=== PATIENT | male | born 1940 | race Caucasian/White ===

== ENCOUNTER → 2020-08-31 07:47 | Outpatient (CLI) | payer MEDICARE, OTHER, SELFPAY ==
--- NOTE | ~2020-08-31 | US_ITS ---
EXAMINATION: US aorta [facility] DATE: 08/31/2020 08:19 INDICATION: Abdominal aortic aneurysm screening, hypercholesterolemia, prior smoker TECHNIQUE: Grayscale, color Doppler, and pulsed Doppler images of the aorta and common iliac arteries were obtained. COMPARISON: None. FINDINGS: Maximum vascular dimensions are as follows: Proximal aorta: 2.9 cm Mid aorta: 2.3 cm Distal aorta: 2.3 cm Right common iliac artery: 1.1 cm Left common iliac artery: 1.2 cm There is no evidence of abdominal aortic aneurysm. IMPRESSION: 1. No sonographic evidence of abdominal aortic aneurysm. Reviewed, dictated and finalized at location A. 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
== END ==
PROVIDERS: PCP Family Medicine; Visit Provider Family Medicine
DX: Z13.6 Encounter for screening for cardiovascular disorders (principal)
CPT/HCPCS: 76706

== ENCOUNTER → 2021-05-03 14:36 | Outpatient (CLI) | payer MEDICARE, OTHER, SELFPAY ==
--- NOTE | ~2021-05-03 | MR_ITS ---
EXAMINATION: MR lumbar spine [facility] EXAM DATE: 05/03/2021 15:23 INDICATION: Lumbar radiculopathy. TECHNIQUE: Multi-sequential, multiplanar MR images of the lumbar spine were obtained without contrast . Sagittal T1, T2, T2 fat saturation images. Axial T2 weighted images. Comparison is made to prior examination from 08/28/2014. FINDINGS: There is partially fused L4-5 disc space. Moderate to severe loss of the L5-S1 disc height, mild to moderate loss of the upper lumbar levels. Mild to moderate central compression fracture supe rior endplate of L1, chronic but this is new compared to 2015. Mild diffuse loss of vertebral body he ights. There are no suspicious marrow signal abnormalities. Paraspinal soft tissue is unremarkable. Level by level evaluation: T12-L1: Disc does not extend beyond the endplate margin. Facet arthropathy: Mild. Neural foraminal stenosis: No stenosis. Central canal stenosis: No stenosis. L1-L2: There is a mild diffuse disc bulge. Facet arthropathy: Mild to moderate. Neural foraminal stenosis: Mild to moderate bilateral. Central canal stenosis: Minimal. L2-L3: There is a mild to moderate diffuse disc bulge. Facet arthropathy: Moderate . Ligamentum flavum enlargement. Neural foraminal stenosis: Moderate left, mild to moderate right. Central canal stenosis: Mild to moderate. L3-L4: There is a moderate diffuse disc bulge. Facet arthropathy: Severe . Ligamentum flavum enlargement. Neural foraminal stenosis: Moderate bilateral. Central canal stenosis: Severe. L4-L5: Partially fused Facet arthropathy: Partially fused. Neural foraminal stenosis: Moderate right, mild to moderate left. Central canal stenosis: Mild to moderate. L5-S1: There is a moderate diffuse disc bulge. Facet arthropathy: Mild to moderate. Neural foraminal stenosis: Moderate right, mild to moderate left. Central canal stenosis: Mild to moderate. Compared to 2014 there is been interval progression in the spondylosis, significant interval progress ion in the L3-4 Central canal stenosis. IMPRESSION: 1. L3-4 severe central canal stenosis. 2. Mild to moderate chronic L1 compression fracture. 3. Spondylosis as detailed above. Reviewed, dictated and finalized at location B.
== END ==
PROVIDERS: PCP Family Medicine
DX: M54.16 Radiculopathy, lumbar region (principal); M48.02 Spinal stenosis, cervical region; M48.56XA Collapsed vertebra, not elsewhere classified, lumbar region, initial encounter for fracture; M47.816 Spondylosis without myelopathy or radiculopathy, lumbar region
CPT/HCPCS: 72148

== ENCOUNTER → 2021-06-01 11:39 | Outpatient (CLI) | payer MEDICARE, OTHER, SELFPAY ==
--- NOTE | ~2021-06-01 | XR_ITS ---
XR lumbar spine min 4V DATE: 06/01/2021 12:32 INDICATION: Lumbar radiculopathy TECHNIQUE: AP, lateral, coned lateral lumbosacral standing views and flexion and extension standing l ateral views COMPARISON: 05/03/2021 MRI lumbar spine FINDINGS: There is diffuse osteopenia. There is mild to moderate anterior wedge compression fracture deformity of L1, present on 05/03/2021. There is moderate degenerative disc disease at L1-2, L2-3, L3-4. There is fusion at L4-5. There is moderately severe degenerative disc disease at L5-S1. The included lower thoracic and lumbar pedicles are intact. The sacroiliac joints appear normal. Surgical clips, right upper quadrant, consistent with cholecystectomy. Prominent amount of fecal material within the colon. IMPRESSION: Mild to moderate anterior wedge compression fracture of L1 Fusion at L4-5 Diffuse osteopenia Multilevel degenerative disc disease Reviewed, dictated and finalized at location B.
== END ==
PROVIDERS: PCP Family Medicine
DX: M54.16 Radiculopathy, lumbar region (principal); Z98.1 Arthrodesis status; M48.56XA Collapsed vertebra, not elsewhere classified, lumbar region, initial encounter for fracture; M47.817 Spondylosis without myelopathy or radiculopathy, lumbosacral region
CPT/HCPCS: 72110

== ENCOUNTER 2021-10-10 12:59 | Emergency (ER) | payer MEDICARE, OTHER, SELFPAY ==
--- NOTE | ~2021-10-10 | XR_ITS ---
XR hand LT 2V 10/10/2021 13:27 Indication: Second digit amputation Procedure: 2 views left hand Comparison: No prior studies for comparison. Findings: There is partial amputation of the left second distal phalanx. No foreign body identified. There is residual fracture of the distal phalanx. There is polyarticular osteoarthritis. Impression: 1: Partial amputation of the left second distal phalanx. Reviewed, dictated and finalized at location A. 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
[2021-10-10 13:04] VITALS: BP 161/92; PULSE 69; RESP 18; TEMP 36.8; O2SAT 100
[2021-10-10] MEDS: ONDANSETRON INJ 4 MG/2 ML VIAL IV PUSH (13:13)
[2021-10-10] MEDS: MORPHINE SULFATE (*CRX) 4 MG/ML INJ IV PUSH (13:13)
--- NOTE | 2021-10-10 13:28 | ED.WOUNDLAC ---
HPI - Wound/Laceration General Chief Complaint: Wound/Laceration Stated Complaint: laceration Time Seen by Provider: 10/10/21 13:04 Source: patient History of Present Illness HPI narrative: Patient presents with a finger amputation. Patient reports he was using his table sawcoronary from and he cut his pointer finger on his left hand. He put the severed piece in a cup with ice and came to the ER for evaluation. Reports pain to his finger is sharp, constant, worse with manipulation of the area. Denies any other injuries denies use of any blood thinners. He does not member when his last tetanus shot was and he is right-hand dominant Related Data Allergies Allergy/AdvReac Type Severity Reaction Status Date / Time No Known Allergies Allergy Verified 09/06/21 13:48 Review of Systems Review of Systems: CONSTITUTIONAL: Denies fever, chills, or sweats. EYES: Denies visual changes, redness, or discharge. ENT: Denies rhinorrhea, congestion, sore throat, or otalgia. CARDIOVASCULAR: Denies chest pain, palpitations, or edema. RESPIRATORY: Denies cough or dyspnea. GASTROINTESTINAL: Denies abdominal pain, nausea, vomiting, or diarrhea. GENITOURINARY: Denies dysuria or hematuria. SKIN: Denies rash or itching. MUSCULOSKELETAL: Denies back pain, joint pain, or myalgia. NEUROLOGIC: Denies headache, numbness, dizziness, or weakness. PSYCHIATRIC: Denies anxiety or depression. All systems reviewed & are unremarkable except as noted in HPI and below PMFSH Past Medical History Medical History Age-related nuclear cataract of both eyes CAD (coronary artery disease) Old [place] (myocardial infarction) Primary open angle glaucoma (POAG) of both eyes, mild stage Surgical History Surgical History History of lumbar surgery L3-4 decompression, laminectomy Family History Family History Other Family history of arthritis Family history of chronic obstructive pulmonary disease Family history of malignant neoplasm Hypertension Social History Social History Smoking packs per day: 1 Smoking cigarettes per day: 20.0 Years smoked: 10 Smoking pack-years: 10.00 Smoking status: Former smoker Tobacco type: cigarettes Second hand tobacco smoke exposure: No Smoking end date: 08/21/79 Alcohol intake: never Substance use: never Substance use type: does not use Gender identity (if verbalized by the patient): Male Sexual Orientation (if Verbalized by the Patient): Straight or Heterosexual Exam Narrative: GENERAL: Well-appearing, well-nourished, and in no acute distress. HEAD: Normocephalic, atraumatic. EYES: PERRLA and EOMI. ENT: Nares clear, no rhinorrhea or epistaxis. Mucous membranes moist. NECK: Supple. No masses. No JVD EXTREMITIES: Amputation of the second digit left hand just proximal to the DIP joint wound is tender to palpation sensation remains intact to light touch around the wound site. SKIN: Warm, dry, no rash. NEURO: No focal deficits. Alert and oriented x3. PSYCH: Normal mood and affect. Course Reevaluation(s) Reevaluation #1: Dr. Negron at bedside performing repair Date: 10/10/21 Time: 15:51 Reevaluation #2: Patient resting comfortably sutures have been completed patient is to follow-up with his outpatient. Patient comfortable outpatient plan. Date: 10/10/21 Time: 16:46 Consultations Consultation #1: Case discussed with Dr. Negron who will come to the ER and evaluate the patient Date: 10/10/21 Time: 13:34 Vital Signs Vital signs: Vital Signs Temperature 36.8 C 10/10/21 13:04 Pulse Rate 69 10/10/21 13:04 Respiratory Rate 18 10/10/21 13:04 Blood Pressure 161/92 H 10/10/21 13:04 Pulse Oximetry 100 10/10/21 13:04 Temperature 36.6 C 10/10/21 17:06 Pulse Rate 65
[2021-10-10] MEDS: TETANUS,DIPHTHERIA,AC PERTUSSIS ADULT (0.5 ML) BOOSTRIX IM (13:29)
[2021-10-10 13:43] VITALS: TEMP 36.8
[2021-10-10] MEDS: ceFAZolin 2 GM/D5W 50 ML 2 GM/50 ML BAG IVPB (13:50)
[2021-10-10 17:06] VITALS: BP 155/82; PULSE 65; RESP 16; TEMP 36.6; O2SAT 97
--- NOTE | 2021-10-11 07:46 | W.PM.PROC2 ---
Procedure Note - Detailed Date of Procedure 10/10/21 Pre-op Diagnosis laceration Amputation at middle phalanx of left index finger. Post-op Diagnosis same Procedure Performed Revision of mid shaft amputation of middle phalanx of left index finger with wound closure using local tissue. Surgeon Geremias Greenwood MD This alert 81-year-old gentleman presented to the ER from home after sustaining an amputation to his left index finger through the middle phalanx while using his table saw. He brought the part with him. He is a gentleman with some cardiac history and is being treated for some hypertension. He was a 20 pack year smoker but quit in 1979. He is not in pain and was not in pain at home. There is no active bleeding at the time I evaluated him in the emergency room. He had been given a Tdap and antibiotic prior to my arrival. He is retired but fairly active and was working on a small project to prove his home. He is right handed and enjoys golfing. Exam of his hand revealed a comminuted fracture of the mid shaft of the middle phalanx and complete amputation of the head of the middle phalanx, distal interphalangeal joint and distal phalanx. I explained to him that no hand surgeon would recommend that the amputated part be reattached. His best option is simply to have me clean this up and close the wound with the preserved local tissue and to get this digit healed as quickly as possible and to regain what use he can of that digit as soon as possible before stiffness occurs. I assured him that the tasks of the index finger can be readily transferred to the middle finger. He agreed to have this procedure performed while he was in the emergency room. Anesthesia local Description of Procedure The patient was comfortably situated on the emergency room [facility]. The hand was position at his side. The index finger was anesthetized with an intrathecal block using 1% lidocaine with epinephrine. The hand was prepped with Betadine solution. The green tourniquet was applied to the finger. The stump was carefully washed with saline wet gauze is until all clot material was removed. No foreign material was identified. A few small fragments of bone were removed. Ragged remnants of the conjoined tendon were removed. Ragged skin margins were excised. The beveled ends of the bone were removed with a rongeur until the existing skin flaps could close the wound the palmar skin flap was long and wide and was folded over the end of the finger to abut the dorsal skin margin. This and other redundant skin was tailored to provide a useful symmetrical soft tissue covering for this amputation. The wound was closed with interrupted 4-0 nylon suture. A soft digital bandage was applied with no splint. The patient was discharged from the emergency room with a prescription for pain medication and antibiotics and instructions to follow up in my office in a few days. The tourniquet was removed from the finger. There were no complications Estimated Blood Loss 5 Drains No Packing No Pathology none sent Complications No immediate complications Condition stable Disposition other ( Home)
== END 2021-10-10 17:03 | disposition home or self-care (01) ==
PROVIDERS: Emergency Provider Emergency Medicine; PCP Family Medicine
DX: S68.621A Partial traumatic transphalangeal amputation of left index finger, initial encounter (principal); Z23 Encounter for immunization; H26.9 Unspecified cataract; I25.2 Old myocardial infarction; H40.1131 Primary open-angle glaucoma, bilateral, mild stage; Z87.891 Personal history of nicotine dependence; W31.2XXA Contact with powered woodworking and forming machines, initial encounter
CPT/HCPCS: 11044; 73120; 90471; 90715; 96365; 96375; 99284; J0690; J2270; J2405

== ENCOUNTER 2021-12-21 20:10 | Inpatient (IN) | payer MEDICARE, OTHER, SELFPAY ==
[2021-12-21] VITALS (18 sets, daily range): BP systolic 138–173; BP diastolic 73–88; PULSE 55–62; RESP 12–22; TEMP 35.8–36; O2SAT 92–98
--- NOTE | ~2021-12-21 | XR_ITS ---
EXAMINATION: XR retrograde pyelo w/stent RT DATE: 12/22/2021 16:47 INDICATION: Right ureteropelvic junction stone with hydronephrosis. TECHNIQUE: 37 fluoroscopic images of the abdomen and pelvis were obtained during procedure performed by Dr. Joyner. Radiologist was not present for the imaging or procedure. The amount of fluoroscop y time used during this procedure was 0.4 minutes. 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 T his demonstrates persistent mild right hydronephrosis. A wire was advanced into the right ureter. Ret rograde contrast injections demonstrates a small stone in the mid right ureter. Final image demonstra hermilo placement of a right internal ureteral stent with loops formed in the dilated right renal pelvis and in the bladder. The stone is not identified on the final image and may have been extracted. Corre late with procedure note. IMPRESSION: 1. Fluoroscopy utilized during right retrograde pyelogram with likely right ureteral stone extraction and placement of a right internal ureteral stent in expected position. Reviewed, dictated and finalized at location A. IMPRESSION: 1. Fluoroscopy utilized during right retrograde pyelogram with likely right ure teral stone extraction and placement of a right internal ureteral stent in expe cted position.
--- NOTE | ~2021-12-21 | XR_ITS ---
EXAMINATION: XR abdomen/kub 1V DATE: 12/22/2021 08:43 INDICATION: Assess renal stone. TECHNIQUE: A supine view of the abdomen on 2 radiographs was obtained. COMPARISON: CT dated 12/21/2021 FINDINGS: Persistent 5 mm stone at a lower pole calyx of the left kidney. Mild right hydronephrosis with residu al contrast in the right renal collecting system, ureter and bladder. The right ureteral stone is arsalan ble to be identified and has either passed or is obscured by the excreted contrast. Cholecystectomy c lips in right upper quadrant. Normal bowel gas pattern. 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 IMPRESSION: 1. 5 mm left renal stone. The previous noted right ureteral stone is not identified and has likely ei ther passed or is obscured by the residual excreted contrast in the mildly dilated right renal collec ting system and ureter. Reviewed, dictated and finalized at location A. IMPRESSION: 1. 5 mm left renal stone. The previous noted right ureteral stone is not identi fied and has likely either passed or is obscured by the residual excreted contr ast in the mildly dilated right renal collecting system and ureter.
--- NOTE | ~2021-12-21 | CT_ITS ---
EXAMINATION: CT abdomen pelvis w con DATE: 12/21/2021 22:11 INDICATION: RLQ abd pain TECHNIQUE: Computed tomography (CT) of the abdomen and pelvis was performed with 100 mL Omnipaque-350 intravenous contrast. Automated exposure control and iterative reconstruction technique were employe d. The dose-length product was 1391.65 mGy-cm. COMPARISON: 09/04/08 FINDINGS: Lower thorax: Bibasilar scar/atelectasis. Aortic valve and coronary calcifications. Liver: Normal. Biliary/Gallbladder: Gallbladder is absent. No bile duct dilation. Spleen: Normal. Pancreas: No mass or duct dilation. Adrenals:No mass. Kidneys: Moderate right and stranding caliectasis and pelviectasis. 6 mm calcification at the right U PJ. Nonobstructing left lower pole calculus GI tract: No small or large bowel dilation. Normal appendix. Diverticulosis without evidence of diver ticulitis. Mesentery/Peritoneum: No ascites, mass, or free air. Retroperitoneum: No mass. Pelvis: Pelvic organs are within normal limits. Bones/Soft Tissues: Soft tissues and body wall unremarkable. Superior endplate deformity with moderat e height loss at L1, new since prior study. Additional Findings: None. IMPRESSION: 6 mm right UPJ stone causing moderate obstructive uropathy. Interval moderate compression deformity o f L1, likely subacute/chronic unless accompanied by acute pain/tenderness. Reviewed, dictated and finalized at location K. IMPRESSION: 6 mm right UPJ stone causing moderate obstructive uropathy. Interval moderate c ompression deformity of L1, likely subacute/chronic unless accompanied by acute pain/tenderness.
--- NOTE | 2021-12-21 20:44 | PC.NURSE ---
During triage prcoess pt begins to c/o pain to the right lower back.
[2021-12-21 20:59] LABS: Basophils Absolute Auto 0.1 K/mm3 (0.0-0.1); Basophils Percent Auto 0.7 % (0.2-1.2); Eosinophils Absolute Auto 0.1 K/mm3 (0-0.3); Eosinophils Percent Auto 1.4 % (0-4.4); Hemoglobin 14.8 g/dL (14.0-18.0); Immature Granulocyte Absolute 0.03 K/mm3 (0.00-0.031); Immature Granulocyte Percent A 0.4 % (0-0.5); Lymphocytes Absolute Auto 1.18 K/mm3 (0.9-3.2); Lymphocytes Percent Auto 15.4 % (18.3-44.2); Mean Corpuscular HGB Conc 32.9 g/dl (32-36); Mean Corpuscular Volume 94.3 fl (80-100); Mean Platelet Volume 9.5 fl (7.4-10.4); Monocytes Absolute Auto 0.7 K/mm3 (0.1-0.6); Monocytes Percent Auto 9.3 % (2.6-8.5); Neutrophils Absolute Auto 5.6 K/mm3 (1.3-6.7); Neutrophils Percent Auto 72.8 % (45.5-73.1); Platelet Count Result 221 k/mm3 (150-375); Red Blood Count 4.77 M/mm3 (4.6-6.20); Red Cell Distribution Width 12.8 % (11.5-14.5); White Blood Count 7.6 K/mm3 (4.5-10.0)
[2021-12-21 21:09] LABS: Alanine Aminotransferase 29 U/L (4-50); Albumin Level 4.9 g/dL (3.5-5.1); Alkaline Phosphatase 118 U/L (38-126); Anion Gap 9 mmol/L (8-16); Aspartate Amino Transferase 45 U/L (17-59); Bilirubin,Total 1.1 mg/dL (0.2-1.3); Blood Urea Nitrogen 19 mg/dL (9-20); Calcium 9.4 mg/dL (8.4-10.2); Carbon Dioxide 27 mmol/L (22-30); Chloride 101 mmol/L (98-107); Estimated CRCL calculation 60 ml/min; Estimated Glomerular Filt Rate > 60; Glucose 181 mg/dL (65-110); Lipase 144 U/L (23-300); Potassium 4.3 mmol/L (3.4-5.0); Sodium 137 mmol/L (137-145)
--- NOTE | 2021-12-21 21:14 | ED.ABDPAIN ---
HPI - Abdominal Pain General Chief Complaint: Abdominal Pain Stated Complaint: abd pain Time Seen by Provider: 12/21/21 21:14 Source: patient Mode of arrival: ambulatory Limitations: no limitations History of Present Illness HPI narrative: The patient is an 81-year-old male with history of hypertension, coronary artery disease, erectile dysfunction, peripheral neuropathy, presenting to the emergency department for evaluation of abdominal pain. Patient reports aching pain in the right lower quadrant with associated nausea and vomiting today. Patient reports difficulty having a bowel movement this afternoon. He denies any diarrhea. Denies ripping or tearing sensation to the flank. Denies fever, chills, chest pain. Patient reports hesitancy with urination, denies dysuria or hematuria. Related Data Allergies Allergy/AdvReac Type Severity Reaction Status Date / Time No Known Allergies Allergy Verified 12/21/21 20:39 Review of Systems Review of Systems: CONSTITUTIONAL: Denies fever, chills, or sweats. EYES: Denies visual changes, redness, or discharge. ENT: Denies rhinorrhea, congestion, sore throat, or otalgia. CARDIOVASCULAR: Denies chest pain, palpitations, or edema. RESPIRATORY: Denies cough or dyspnea. GASTROINTESTINAL: Reports abdominal pain, nausea, vomiting, constipation GENITOURINARY: Denies dysuria or hematuria. Reports hesitancy. SKIN: Denies rash or itching. MUSCULOSKELETAL: Denies back pain, joint pain, or myalgia. NEUROLOGIC: Denies headache, numbness, or weakness. 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 CAD (coronary artery disease) Chronic lower back pain Essential (primary) hypertension IFG (impaired fasting glucose) LBBB (left bundle branch block) Multilevel degenerative disc disease Old [place] (myocardial infarction) Peripheral polyneuropathy Primary open angle glaucoma (POAG) of both eyes, mild stage Surgical History Surgical History History of lumbar surgery L3-4 decompression, laminectomy Family History Family History Other Family history of arthritis Family history of chronic obstructive pulmonary disease Family history of malignant neoplasm Hypertension Social History Social History Smoking packs per day: 1 Smoking cigarettes per day: 20.0 Years smoked: 10 Smoking pack-years: 10.00 Smoking status: Former smoker Tobacco type: cigarettes Second hand tobacco smoke exposure: No Smoking end date: 08/21/79 Alcohol intake: never Substance use: never Substance use type: does not use Gender identity (if verbalized by the patient): Male Sexual Orientation (if Verbalized by the Patient): Straight or Heterosexual Exam Narrative: GENERAL: Awake, alert, conversant HEAD: Normocephalic, atraumatic. EYES: PERRLA and EOMI. ENT: Nares clear, no rhinorrhea or epistaxis. Mucous membranes moist. NECK: Supple. CHEST: No respiratory distress, breathing even and non labored HEART: Regular rate, sinus rhythm ABDOMEN: No significant distention, moderate protuberance, mild right lower quadrant tenderness on exam without rebound, rigidity or guarding, no other tenderness in all 4 quadrants, no flank tenderness bilaterally EXTREMITIES: Normal range of motion. No edema. SKIN: Warm, dry, no rash. NEURO:No focal deficits. Alert and oriented x3 Course Vital Signs Vital signs: Vital Signs Temperature 35.8 C L 12/21/21 20:35 Pulse Rate 62 12/21/21 20:35 Respiratory Rate 16 12/21/21 20:35 Blood Pressure 151/86 H 12/21/21 20:35 Pulse Oximetry 97 12/21/21 20:35 Temperature 36.0 C L 12/21/21 21:15 Pulse Rate 60 12/21/21 21:45
[2021-12-21 21:28] LABS: Appearance Urine Clear (Clear); Bilirubin Urine Negative (Negative); Blood Urine 2+ (Negative); Color Urine Yellow (Yellow); Glucose Urine UA Negative (Negative); Ketones Urine Negative (Negative); Leukocyte Esterase Ur Negative LEU/UL (Negative); Nitrate Urine Negative (Negative); Protein Urine Negative (Negative); Specific Grav Ur >= 1.030 (1.001-1.035); Urobilinogen Urine 0.2 mg/dL (<2.0)
[2021-12-21 21:34] LABS: Bacteria Urine Trace /hpf; Mucus Urine Rare /lpf; RBC Urine 51-75 /hpf (0-2); WBC Urine 0-3 /hpf
[2021-12-21 21:40] LABS: Add Urine Microscopic? YES
[2021-12-21] MEDS: MORPHINE SULFATE (*CRX) 4 MG/ML INJ IV PUSH ×2 (21:43→22:29)
[2021-12-21 23:08] LABS: SARS-CoV-2 RNA PCR Negative
[2021-12-22] VITALS (9 sets, daily range): BP systolic 121–178; BP diastolic 68–97; PULSE 57–72; RESP 14–20; TEMP 35.8–36.7; O2SAT 91–100; BMI 31.1
[2021-12-22] MEDS: HYDROmorphone HCL INJ (*CRX) 1 MG/ML SYR 0.5 MG IV PUSH ×3 (00:40→10:54)
[2021-12-22] MEDS: LACTATED RINGERS 1,000 ML 125 ML IV CONT ×4 (00:58→22:36)
--- NOTE | 2021-12-22 04:29 | PM.IMHP ---
H&P: HPI History of Present Illness Date/Time: Greater than 30 minutes was spent reviewing chart, evaluating, treating, and counseling patient. Anticipate patient will be admitted for less than 48 hours, will admit under observation. 12/22/21 04:29 81 yo M PMHx of HTN/. Presents with R groin pain that started yesterday afternoon. Sharp in nature. Admits to nausea/vomiting with pain that started while in ED. Patient had vomiting episode while talking with him. Patient denies fevers/chills, chest pain, palpitations, diarrhea, constipation, dysuria, hematuria, blood in stool. Patient states he was told his doctors were worried he had a heart attack in the past, but testing came back negative. In ED, labs unremarkable. CT A/P showing 6 mm UPJ stone on right and compression fracture of L1 chronic in nature. Urology consulted, plan to take to OR today. Chief Complaint: R groin pain Review of Systems Review of Systems: 10 point ROS completed, negative unless otherwise specified per HPI [facility] Past Medical History Medical History (Updated 12/21/21 @ 22:35 by Filomena Garcia MD) Age-related nuclear cataract of both eyes Amputation finger Benign prostatic hyperplasia with lower urinary tract symptoms CAD (coronary artery disease) Chronic lower back pain Essential (primary) hypertension IFG (impaired fasting glucose) LBBB (left bundle branch block) Multilevel degenerative disc disease Old [place] (myocardial infarction) Peripheral polyneuropathy Primary open angle glaucoma (POAG) of both eyes, mild stage Surgical History Surgical History History of lumbar surgery L3-4 decompression, laminectomy Family History Family History Other Family history of arthritis Family history of chronic obstructive pulmonary disease Family history of malignant neoplasm Hypertension Social History Social History Smoking packs per day: 1 Smoking cigarettes per day: 20.0 Years smoked: 10 Smoking pack-years: 10.00 Smoking status: Former smoker Tobacco type: cigarettes Second hand tobacco smoke exposure: No Smoking end date: 08/21/79 Alcohol intake: never Substance use: never Substance use type: does not use Gender identity (if verbalized by the patient): Male Sexual Orientation (if Verbalized by the Patient): Straight or Heterosexual Spiritual care concerns: No Meds Home Medications and Allergies Home Medications Medication Instructions Recorded Confirmed Type hydrochlorothiazide 12.5 mg capsule 12.5 mg PO DAILY #90 cap 11/01/21 12/22/21 Rx Allergies Allergy/AdvReac Type Severity Reaction Status Date / Time No Known Allergies Allergy Verified 12/21/21 20:39 Vital Signs Vital Signs - 24 hr 12/21/21 20:35 12/21/21 21:15 12/21/21 21:20 Temperature 96.4 F L 96.8 F L Pulse Rate 62 56 L 56 L Respiratory Rate 16 22 H 12 Blood Pressure 151/86 H 159/82 H Pulse Oximetry 97 98 98 12/21/21 21:21 12/21/21 21:30 12/21/21 21:31 Temperature Pulse Rate 57 L 57 L 57 L Respiratory Rate 18 20 21 H Blood Pressure 138/78 150/78 H Pulse Oximetry 98 96 96 12/21/21 21:45 12/21/21 21:46 12/21/21 22:11 Temperature Pulse Rate 55 L 61 61 Respiratory Rate 22 H 15 21 H Blood Pressure 150/78 H 148/85 H Pulse Oximetry 97 98 95 12/21/21 22:15 12/21/21 22:17 12/21/21 22:30 Temperature Pulse Rate 58 L 58 L 58 L Respiratory Rate 18 21 H 17 Blood Pressure 173/88 H Pulse Oximetry 95 96 94 12/21/21 22:32 12/21/21 23:02 12/21/21 23:03 Temperature Pulse Rate 60 57 L 58 L Respiratory Rate 20 16 15 Blood Pressure 148/82 H 147/73 H Pulse Oximetry 92 93 94 12/21/21 23:15 12/21/21 23:17 12/21/21 23:39 Temperature Pulse Rate 56 L 56 L 59 L Respiratory Rate 16 14 14 Blood Pressure 144/74 H Pulse Oximetry 93
[2021-12-22] MEDS: ONDANSETRON INJ 4 MG/2 ML VIAL IV PUSH (04:32)
--- NOTE | 2021-12-22 04:43 | ECG_ITS ---
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
[2021-12-22 06:18] LABS: Basophils Percent Auto 0.2 % (0.2-1.2); Hematocrit 42.4 % (42.0-52.0); Immature Granulocyte Absolute 0.02 K/mm3 (0.00-0.031); Immature Granulocyte Percent A 0.3 % (0-0.5); Lymphocytes Absolute Auto 0.55 K/mm3 (0.9-3.2); Lymphocytes Percent Auto 8.3 % (18.3-44.2); Mean Corpuscular Hemoglobin 31.3 pg (26-34); Mean Corpuscular Volume 94.9 fl (80-100); Mean Platelet Volume 9.3 fl (7.4-10.4); Monocytes Absolute Auto 0.4 K/mm3 (0.1-0.6); Monocytes Percent Auto 6.5 % (2.6-8.5); Neutrophils Absolute Auto 5.6 K/mm3 (1.3-6.7); Neutrophils Percent Auto 84.7 % (45.5-73.1); Platelet Count Result 196 k/mm3 (150-375); Red Blood Count 4.47 M/mm3 (4.6-6.20); Red Cell Distribution Width 12.9 % (11.5-14.5); White Blood Count 6.6 K/mm3 (4.5-10.0)
[2021-12-22 06:27] LABS: Hemoglobin A1C 5.6 % (<5.7)
[2021-12-22 06:38] LABS: Alanine Aminotransferase 26 U/L (4-50); Albumin Level 4.3 g/dL (3.5-5.1); Alkaline Phosphatase 100 U/L (38-126); Anion Gap 8 mmol/L (8-16); Aspartate Amino Transferase 38 U/L (17-59); Bilirubin,Total 1.1 mg/dL (0.2-1.3); Blood Urea Nitrogen 18 mg/dL (9-20); Calcium 8.9 mg/dL (8.4-10.2); Carbon Dioxide 29 mmol/L (22-30); Chloride 100 mmol/L (98-107); Estimated CRCL calculation 61 ml/min; Estimated Glomerular Filt Rate > 60; Glucose 165 mg/dL (65-110); Potassium 4.5 mmol/L (3.4-5.0); Sodium 137 mmol/L (137-145)
--- NOTE | 2021-12-22 10:40 | ECHO_ITS ---
Patient Info Name: Rian Lux Age: 81 years : 1940 Gender: Male Ht: 70 in Wt: 216 lbs BSA: 2.23 m2 HR: 63 bpm BP: 153 / 82 mmHg Heart Rhythm: Sinus Rhythm Technical Quality: Fair Exam Date: 12/22/2021 11:33 AM Exam Location: [facility] Patient Status: Inpatient Admit Date: 12/21/2021 Staff Ordering Physician: Yeimi Callaway APRN Client Development Director: Luh Mcdonough RDCS Attending Provider: Niels Boykin DO Referring Physician: Nilton RIOS; Exam Type: CA echo dop color flow w con Study Info Indications - murmur Complete two-dimensional, color flow and Doppler transthoracic echocardiogram is performed with contrast to opacify the left ventricle and to improve the deliniation of the left ventricle endocardial borders. Contrast/Agitated Saline Contrast/Ag. Saline: Definity Amount: 2.00 ml Administered By: Luh Mcdonough RDCS Existing IV Access: Yes IV Access Condition: patent with no signs of infiltration Summary 1. Left ventricular chamber dimension is normal. 2. Definity contrast administered improved wall motion interpretation. 3. Left ventricular systolic function is normal, estimated at 65-70%. 4. There is mildly increased left ventricular wall thickness. 5. The left ventricular diastolic function is grade I diastolic dysfunction. 6. E/e' 11 is mildly elevated. 7. There is moderate aortic valve sclerosis. 8. There is mild aortic valve stenosis with a peak velocity of 199.41 cm/s, mean gradient of 8 mmHg, and aortic valve area of 1.93 cm2. 9. No pulmonary hypertension, estimated pulmonary arterial systolic pressure is 23 mmHg. Left Ventricle E/e' 11 is mildly elevated. Definity contrast administered improved wall motion interpretation. Left ventricular chamber dimension is normal. Left ventricular systolic function is normal, estimated at 65-70%. There is mildly increased left ventricular wall thickness. The left ventricular diastolic function is grade I diastolic dysfunction. Right Ventricle Right ventricular systolic function is normal and with normal TAPSE 2.1 cm.. Right ventricular chamber dimension is normal. Left Atria Left atrial chamber dimension is normal. Right Atria Right atrial chamber dimension is normal. Aortic Valve The aortic valve is trileaflet. There is moderate aortic valve sclerosis. There is mild aortic valve stenosis with a peak velocity of 199.41 cm/s, mean gradient of 8 mmHg, and aortic valve area of 1.93 cm2. There is no aortic valve regurgitation. Pulmonic Valve There is no pulmonic regurgitation. Mitral Valve There is no mitral valve stenosis. There is no mitral valve regurgitation. Tricuspid Valve There is no tricuspid valve regurgitation. No pulmonary hypertension, estimated pulmonary arterial systolic pressure is 23 mmHg. Pericardium/Pleural There is no pericardial effusion. Inferior Vena Cava Normal inferior vena cava with >50% collapse upon inspiration consistent with normal right atrial pressure, 5 mmHg. Aorta The aortic root size at the sinus of Valsalva is normal. Left Ventricular Outflow Tract Name Value Normal LVOT 2D LVOT Diameter 2.14 cm
--- NOTE | 2021-12-22 10:40 | PM.IMPN ---
Progress Note: A&P Assessment and Plan (1) Renal colic on right side: Code(s): N23 - Unspecified renal colic Status: Acute Assessment and Plan: Urology c/s, plan for stent placement today. Keep NPO. Urine does not appear infected, hold off on abx. Dialudid prn for pain, zofran for nausea (2) Multilevel degenerative disc disease: Code(s): M53.9 - Dorsopathy, unspecified Status: Acute Assessment and Plan: L1 compression deformity seen on CT. Check vitamin D level. Consider checking AM testosterone level as OP (3) Essential (primary) hypertension: Code(s): I10 - Essential (primary) hypertension Status: Acute Assessment and Plan: hold HCTZ (4) Cardiac murmur: Code(s): R01.1 - Cardiac murmur, unspecified Status: Acute Assessment and Plan: Obtain echocardiogram. Patient has a history of a cardiac murmur. Revised cardiac risk evaluation: Patient does not have a history of cardiac disease, CVA or heart failure. Renal functions WNL. Current cardiac risk evaluation 0 points, class 1 risk. Given 3.9% 30 day risk of , [place] cardiac arrest. Pending echocardiogram Subjective Date/time seen: 12/22/21 10:40 No acute events reported by RN during the night. Urology will follow with the patient for possible stent placement for the 6 months. Repeat J-stent. It is patient is aware of possible surgical intervention. Patient denies any difficulty climbing stairs, shortness of, or significant cardiac history. There was a cardiac murmur auscultated upon exam this morning, pending echocardiogram. Pain is currently being managed with Dilaudid IVP. The patient remains NPO Review of Systems Review of Systems: All systems reviewed & are unremarkable except as noted in HPI and below Exam Narrative: General: No acute distress. Mental Status: Awake, alert and oriented to person, place, and time with clear speech. Skin: Skin in warm, dry and intact without rashes or lesions. Head: Normocephalic and atraumatic. Eyes: Conjunctivae are clear without exudates or hemorrhage. Sclera is non-icteric. EOM are intact, PERRLA. Ears: The external ear and canal are non-tender and without swelling or discharge. Nose: Nasal mucosa is pink and moist. Septum midline. Nares patent bilaterally. Throat: Oral mucosa pink and moist with good dentition. Tongue midline. Neck: The neck supple without adenopathy. Trachea midline. No JVD. Cardiac: S1 and S2 regular rate and rhythm. murmur auscultated in the 2nd intercostal space Left of the sternal border, no gallops, or rubs auscultated. Respiratory: Chest wall symmetric, nontender and without deformity or trauma. Respirations even and unlabored. Lung sounds are clear to auscultation in all lobes bilaterally without wheezes, rhonchi, or rales. Abdominal: Abdomen distended, round and non-tender to palpation. Bowel sounds present and normoactive in all 4 quadrants. Spine: Neck and back with grossly normal curvature, no deformity in appearance or signs of trauma. Extremities: Upper and lower extremities atraumatic without tenderness or deformity. Full range of motion and muscle strength 5/5 to all extremities bilaterally. Neurological: Full and symmetric motor and light touch sensation bilaterally. Cranial nerves II-XII grossly intact. Objective Data Vital Signs Vital Signs: Vital Signs - 24 hr 12/21/21 20:35 12/21/21 21:15 12/21/21 21:20 Temperature 96.4 F L 96.8 F L Pulse Rate 62 56 L 56 L Respiratory Rate 16 22 H 12 Blood Pressure 151/86 H 159/82 H Pulse Oximetry 97 98 98 12/21/21 21:21 12/21/21 21:30 12/21/21 21:31 Temperature Pulse Rate 57 L 57 L 57 L Respiratory Rate 18 20 21 H Blood Pressure 138/78 150/78 H Pulse Oximetry 98 96 96 12/21/21 21:45 12/21/21 21:46 12/21/21 22:11 Temperature Pulse Rate 55 L 61 61 Respiratory Rate 22 H 15 21 H Blood Pressure 150/78 H 148/85 H Pulse Oximetry 97 98 95 12/21/21 2
[2021-12-22] MEDS: PERFLUTREN LIPID MICROSPHERES 1.5 ML VIAL DILUTED TO 10 ML TOTAL VOLUME IV PUSH (12:09)
--- NOTE | 2021-12-22 12:09 | IVDEFINITY ---
Prior to administration of IV Definity the patient was educated on the risks and benefits of the imaging enhancing agent including potential adverse side effects. The patient verbalized understanding. Allergies were verified. No exclusion criteria were identified and at least one of the following inclusion criteria were met: 1) physician request, 2) patient technically difficult to image (per the [place] [employer]chocardi[employer] guidelines of two or more segments not discernable within the apical view), or 3) questionable left ventricular function. ?
--- NOTE | 2021-12-22 12:32 | WPDURCON ---
Assessment and Plan Assessment and plan (1) Right ureteral stone: Code(s): N20.1 - Calculus of ureter Status: Acute Assessment and Plan: Obtain Consent: Cystoscopy, right ureteroscopy with stone removal and possible right stent placement, right retrograde pyelogram, possible holmium laser Keep NPO. Plan to go to the OR with Dr. Joyner this afternoon. . Urology Consult Note HPI Date Seen: 12/22/21 Requesting Physician: Niels Boykin DO Primary Care Provider: Esau Blair MD Consult Narrative Narrative: Rian Lux is a 81 year old male who presented to the ER yesterday after acute onset of right lower quadrant abdominal pain which was accompanied by nausea and vomiting. He denies dysuria, frequency, urgency, hematuria or fever. He was found to have a 6mm right UPJ stone on CT, UA showed microhematuria but didn't appear infected, WBC was 6.6, creatinine was 1.00 and he was afebrile. No KUB was done initially with the CT scan, however a KUB was done this morning and noted that the stone seen on CT wasn't visible or stone had passed. He states he has had only one other stone in the past which he passed on his own. He states the pain medication has helped him but pain remains intolerable. 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 CAD (coronary artery disease) Chronic lower back pain Essential (primary) hypertension IFG (impaired fasting glucose) LBBB (left bundle branch block) Multilevel degenerative disc disease Old [place] (myocardial infarction) Peripheral polyneuropathy Primary open angle glaucoma (POAG) of both eyes, mild stage Surgical History Surgical History History of lumbar surgery L3-4 decompression, laminectomy Family History Family History Other Family history of arthritis Family history of chronic obstructive pulmonary disease Family history of malignant neoplasm Hypertension Social History Social History Smoking packs per day: 1 Smoking cigarettes per day: 20.0 Years smoked: 10 Smoking pack-years: 10.00 Smoking status: Former smoker Tobacco type: cigarettes Second hand tobacco smoke exposure: No Smoking end date: 08/21/79 Alcohol intake: never Substance use: never Substance use type: does not use Gender identity (if verbalized by the patient): Male Sexual Orientation (if Verbalized by the Patient): Straight or Heterosexual Spiritual care concerns: No Meds Home Medications and Allergies Home Medications Medication Instructions Recorded Confirmed Type hydrochlorothiazide 12.5 mg capsule 12.5 mg PO DAILY #90 cap 11/01/21 12/22/21 Rx Allergies Allergy/AdvReac Type Severity Reaction Status Date / Time No Known Allergies Allergy Verified 12/21/21 20:39 Vital Signs Vital Signs - 24 hr 12/21/21 20:35 12/21/21 21:15 12/21/21 21:20 Temperature 96.4 F L 96.8 F L Pulse Rate 62 56 L 56 L Respiratory Rate 16 22 H 12 Blood Pressure 151/86 H 159/82 H Pulse Oximetry 97 98 98 12/21/21 21:21 12/21/21 21:30 12/21/21 21:31 Temperature Pulse Rate 57 L 57 L 57 L Respiratory Rate 18 20 21 H Blood Pressure 138/78 150/78 H Pulse Oximetry 98 96 96 12/21/21 2
--- NOTE | 2021-12-22 12:47 | WPDHPUPDATE1 ---
History and Physical Update Update Date/Time: 12/22/21 12:47 History and Physical has been reviewed, including an updated exam of the patient. There are NO changes in the patient's condition. Risks, benefits, and alternatives have been discussed and questions answered. Patient agrees to proceed with procedure.
[2021-12-22] MEDS: CHLORHEXIDINE GLUCONATE 4% SOL 120 ML BTL 1 APPLIC TOPICAL (14:25)
--- NOTE | 2021-12-22 15:07 | PC.NURSE ---
pt put phone in bedside table draw prior to surgery
--- NOTE | 2021-12-22 15:11 | WPDANESEPPF ---
Anes - Initial Pre Proc Eval Procedure: Operation Date: 12/22/21 16:00 Proposed Procedures p Cystoscopy, Right Retrograde Pyelogram, Right Stone Extraction, Possible Right Stent Placement, Possible Holmium Laser(Right) - Padma Joyner MD Date/Time: 12/22/21 15:11 Surgeon: Niels Boykin DO Pre Op Diagnosis: Renal Colic Patient Data Age: 81 Gender: M Height: 1.78 m Weight: 98.3 kg Last Vital Signs Temp 35.8 C L 12/22/21 05:46 Pulse 63 12/22/21 05:46 Resp 14 12/22/21 05:46 BP 153/82 H 12/22/21 05:46 Pulse Ox 94 12/22/21 05:46 Allergies Allergy/AdvReac Type Severity Reaction Status Date / Time No Known Allergies Allergy Verified 12/21/21 20:39 Home Medications Medication Instructions Recorded Confirmed Type hydrochlorothiazide 12.5 mg capsule 12.5 mg PO DAILY #90 cap 11/01/21 12/22/21 Rx Laboratory Tests 12/21/21 12/21/21 12/21/21 20:46 20:46 21:18 WBC 7.6 K/mm3 K/mm3 (4.5-10.0) RBC 4.77 M/mm3 M/mm3 (4.6-6.20) Hgb 14.8 g/dL g/dL (14.0-18.0) Hct 45.0 % % (42.0-52.0) MCV 94.3 fl fl (80-100) MCH 31.0 pg pg (26-34) MCHC 32.9 g/dl g/dl (32-36) RDW 12.8 % % (11.5-14.5) Plt Count 221 k/mm3 k/mm3 (150-375) MPV 9.5 fl fl (7.4-10.4) Immature Gran % (Auto) 0.4 % % (0-0.5) Neut % (Auto) 72.8 % % (45.5-73.1) Lymph % (Auto) 15.4 % L % (18.3-44.2) [place] % (Auto) 9.3 % H % (2.6-8.5) Eos % (Auto) 1.4 % % (0-4.4) Baso % (Auto) 0.7 % % (0.2-1.2) Lymph # (Auto) 1.18 K/mm3 K/mm3 (0.9-3.2) [place] # (Auto) 0.7 K/mm3 H K/mm3 (0.1-0.6) Eos # (Auto) 0.1 K/mm3 K/mm3 (0-0.3) Baso # (Auto) 0.1 K/mm3 K/mm3 (0.0-0.1) Abs Immat Gran (auto) 0.03 K/mm3 K/mm3 (0.00-0.031) Absolute Neuts (auto) 5.6 K/mm3 K/mm3 (1.3-6.7) Absolute Nucleated RBC 0.0 K/mm3 K/mm3 (0.0-0.012) Nucleated RBC % 0.0 % % (0.0-0.2) Sodium 137 mmol/L mmol/L (137-145) Potassium 4.3 mmol/L mmol/L (3.4-5.0) Chloride 101 mmol/L mmol/L (98-107) Carbon Dioxide 27 mmol/L mmol/L (22-30) Anion Gap 9 mmol/L mmol/L (8-16) BUN 19 mg/dL mg/dL (9-20) Creatinine 1.00 mg/dL mg/dL (0.7-1.3) Estim Creat Clear Calc 60 ml/min ml/min Estimated GFR > 60 (59 - ) Glucose 181 mg/dL H mg/dL (65-110) Hemoglobin A1c Calcium 9.4 mg/dL mg/dL (8.4-10.2) Total Bilirubin 1.1 mg/dL mg/dL (0.2-1.3) AST 45 U/L U/L (17-59) ALT 29 U/L U/L (4-50) Alkaline Phosphatase 118 U/L U/L (38-126) Total Protein 8.0 g/dL g/dL (6.3-8.2) Albumin 4.9 g/dL g/dL (3.5-5.1) Lipase 144 U/L U/L (23-300) Vitamin D 25-Hydroxy Urine Color Yellow (Yellow) Urine Appearance Clear (Clear) Urine pH 5.0 (5.0-9.0) Ur Specific [place] >= 1.030 (1.001-1.035) Urine Protein Negative mg/dL mg/dL (Negative) Urine Glucose (UA) Negative mg/dL mg/dL (Negative) Urine Ketones Negative mg/dL mg/dL (Negative) Ur Blood (Man) 2+ H (Negative) Urine Nitrate Negative (Negative) Urine Bilirubin Negative (Negative) Urine Urobilinogen 0.2 mg/dL mg/dL (<2.0) Leukocyte Esterase Rfl Negative LES/UL LES/UL (Negative) Urine RBC 51-75 /hpf H /hpf (0-2) Urine WBC 0-3 /hpf /hpf Urine Bacteria Trace /hpf /hpf Hyaline Casts 3-4 /lpf H /lpf (None) Urine Mucus Rare /lpf /lpf SARS-CoV-2 RNA (RT-PCR) 12/21/21 12/22/21 12/22/21 22:24 06:09 06:09 WBC 6.6 K/mm3 K/mm3 (4.5-10.0) RBC 4.47 M/mm3 L M/mm
[2021-12-22] MEDS: LACTATED RINGERS 1,000 ML 30 ML IV CONT (15:20)
[2021-12-22] MEDS: ceFAZolin SODIUM 1 GM VIAL 2 GM IV PUSH (16:24)
[2021-12-22] MEDS: LIDOCAINE HCL 2% GEL UROJET 10 ML PKG MUCOUS MEM (16:27)
--- NOTE | 2021-12-22 16:45 | W.PM.PROC2 ---
Procedure Note - Detailed Date of Procedure 12/22/21 Pre-op Diagnosis Right ureteral stone Post-op Diagnosis Same Procedure Performed Cystoscopy, right ureteroscopy, stone extraction, retrograde pyelogram, stent insertion Surgeon Padma Joyner MD Anesthesia General Findings Right ureteral stone Description of Procedure Informed consent was obtained. Patient to the operating. He was given preoperative antibiotics. He was induced anesthesia. Prepped draped normal sterile fashion. We inserted a 22 F cystoscope through the urethra into the bladder. Expected the bladder and there were no mucosal abnormalities. The patient did have bilobar prostatic hyperplasia. We identified bilateral orthotopic ureteral orifices. We cannulated the right ureteral orifice and passed a wire. Of note there was pre-existing contrast in the right kidney demonstrating moderate hydronephrosis. Over the wire we then advanced an 810 coaxial dilator and dilated the distal ureter. We then advanced a semi rigid ureteral scope into the distal 2/3 of the ureter we identified the stone above the level of the iliac vessels. The stone was then captured in a ZeroTip basket and was then manipulated out through the length of the ureter without significant resistance. We then reinspected the distal ureter and there were no residual stones. A retrograde pyelogram revealed no filling defects. We did place a 4.8 F variable length stent with curl in the renal pelvis and a curl in the bladder. Viscous lidocaine was instilled. Patient was then awakened and taken recovery room stable condition Drains No Packing No Pathology Yes Complications No immediate complications Condition Stable Disposition PACU
[2021-12-23 06:19] LABS: Basophils Percent Auto 0.6 % (0.2-1.2); Eosinophils Absolute Auto 0.2 K/mm3 (0-0.3); Eosinophils Percent Auto 2.8 % (0-4.4); Hematocrit 37.8 % (42.0-52.0); Hemoglobin 12.2 g/dL (14.0-18.0); Immature Granulocyte Absolute 0.01 K/mm3 (0.00-0.031); Immature Granulocyte Percent A 0.2 % (0-0.5); Lymphocytes Absolute Auto 1.43 K/mm3 (0.9-3.2); Lymphocytes Percent Auto 26.5 % (18.3-44.2); Mean Corpuscular HGB Conc 32.3 g/dl (32-36); Mean Corpuscular Hemoglobin 31.4 pg (26-34); Mean Corpuscular Volume 97.4 fl (80-100); Mean Platelet Volume 9.6 fl (7.4-10.4); Monocytes Absolute Auto 0.8 K/mm3 (0.1-0.6); Monocytes Percent Auto 14.5 % (2.6-8.5); Neutrophils Percent Auto 55.4 % (45.5-73.1); Platelet Count Result 172 k/mm3 (150-375); Red Blood Count 3.88 M/mm3 (4.6-6.20); Red Cell Distribution Width 13.3 % (11.5-14.5); White Blood Count 5.4 K/mm3 (4.5-10.0)
[2021-12-23 06:37] LABS: Alanine Aminotransferase 20 U/L (4-50); Albumin Level 3.7 g/dL (3.5-5.1); Alkaline Phosphatase 87 U/L (38-126); Anion Gap 5 mmol/L (8-16); Aspartate Amino Transferase 34 U/L (17-59); Bilirubin,Total 1.7 mg/dL (0.2-1.3); Blood Urea Nitrogen 16 mg/dL (9-20); Calcium 8.4 mg/dL (8.4-10.2); Carbon Dioxide 30 mmol/L (22-30); Chloride 103 mmol/L (98-107); Estimated CRCL calculation 68 ml/min; Estimated Glomerular Filt Rate > 60; Glucose 108 mg/dL (65-110); Potassium 3.9 mmol/L (3.4-5.0); Sodium 138 mmol/L (137-145)
--- NOTE | 2021-12-23 07:32 | WPDUROPN2 ---
Progress Note: A&P Assessment and Plan (1) Right ureteral stone: Code(s): N20.1 - Calculus of ureter Status: Acute Assessment and Plan: Patient doing well following right ureteral stone extraction. He is having mild stent irritation. Discharge any time from our standpoint with follow-up next week for stent removal as an outpatient in the office. Subjective Subjective Date/Time Seen: 12/23/21 07:32 Patient reports urinary frequency and mild dysuria following stone extraction. I explained to him this is consistent with the indwelling ureteral stent Review of Systems Cardiovascular: Cardiovascular: Denies chest pain, Denies lightheadedness, Denies palpitations and Denies dyspnea Respiratory: Respiratory: Denies dyspnea Gastrointestinal: Gastrointestinal: Denies diarrhea, Denies nausea and Denies vomiting Genitourinary: Genitourinary: Denies hematuria and Denies dysuria Endocrine: Endocrine: Denies palpitations Exam Const: General: no acute distress Resp: Effort & Inspection: normal respiratory effort GI: Inspection: non-distended GI Palp: No abdominal tenderness and No Guarding due to palpation present (GI) Auscultation: normal bowel sounds Objective Data Vital Signs Vital Signs: Vital Signs - 24 hr 12/22/21 14:00 12/22/21 15:12 12/22/21 16:54 Temperature 97.0 F L 97.8 F 97.2 F L Pulse Rate 58 L 60 72 Respiratory Rate 17 20 16 Blood Pressure 132/72 134/71 178/81 H Pulse Oximetry 91 96 99 12/22/21 17:10 12/22/21 17:25 12/22/21 17:40 Temperature Pulse Rate 67 65 61 Respiratory Rate 18 18 15 Blood Pressure 163/89 H 145/83 H 121/97 H Pulse Oximetry 100 96 96 Intake/Output Intake/Output: Intake & Output 12/20/21 12/21/21 12/22/21 12/23/21 23:59 23:59 23:59 23:59 Intake Total 4000 750 Output Total 100 Balance 3900 750 Meds/Results Medications: Active Medications Generic Name Dose Route Start Last Admin Trade Name Freq PRN Reason Stop Dose Admin Hydromorphone HCl 0.5 mg 12/22/21 04:03 12/22/21 10:54 Hydromorphone Hcl Inj (*Crx) 1 Mg/Ml Syr IV PUSH 0.5 mg Q6H PRN Administration Pain Rated 7-10 Lactated Ringer's 1,000 mls @ 125 mls/hr 12/21/21 23:00 12/22/21 22:36 Lr - Lactated Ringers Iv IV CONT 125 mls/hr .Q8H DOMONIQUE Administration Ondansetron HCl 4 mg 12/21/21 23:00 12/22/21 04:32 Ondansetron Inj 4 Mg/2 Ml Vial IV PUSH 4 mg Q4H PRN Administration Nausea Radiology Results: ITS Impressions Abdomen/Pelvis CT 12/21/21 22:17 IMPRESSION: 6 mm right UPJ stone causing moderate obstructive uropathy. Interval moderate compression deformity of L1, likely subacute/chronic unless accompanied by acute pain/tenderness. Abdomen X-Ray 12/22/21 08:45 IMPRESSION: 1. 5 mm left renal stone. The previous noted right ureteral stone is not identified and has likely either passed or is obscured by the residual excreted contrast in the mildly dilated right renal collecting system and ureter. Labs Labs: Laboratory Results - last 24 hr 12/23/21 12/23/21 06:02 06:02 WBC 5.4 RBC 3.88 L Hgb 12.2 L Hct 37.8 L MCV 97.4 MCH 31.4 MCHC 32.3 RDW 13.3 Plt Count 172 MPV 9.6 Immature Gran % (Auto) 0.2 Neut % (Auto) 55.4 Lymph % (Auto) 26.5 [place] % (Auto) 14.5 H Eos % (Auto) 2.8 Baso % (Auto) 0.6 Lymph # (Auto) 1.43 [place] # (Auto) 0.8 H Eos # (Auto) 0.2 Baso # (Auto) 0.0 Abs Immat Gran (auto) 0.01 Absolute Neuts (auto) 3.0 Absolute Nucleated RBC 0.0 Nucleated RBC % 0.0 Sodium 138 Potassium 3.9 Chloride 103 Carbon Dioxide 30 Anion Gap 5 L BUN 16 Creatinine 0.90 Estim Creat Clear Calc 68 Estimated GFR > 60 Glucose 108 Calcium 8.4 Total Bilirubin 1.7 H AST 34 ALT 20 Alkaline Phosphatase 87 Total Protein 7.0 Albumin 3.7 Quality VTE Prophylaxis VTE prophylaxis: mechanical ordered
--- NOTE | 2021-12-23 12:17 | PM.DS ---
DS: Admitting Diagnosis Discharge Date 12/23/21 Admitting Diagnosis 6 mm UPJ obstructing stone DS: Discharge Diagnosis Discharge Diagnosis (1) Renal colic on right side: Code(s): N23 - Unspecified renal colic Status: Acute Assessment and Plan: Urology c/s, plan for stent placement today. Keep NPO. Urine does not appear infected, hold off on abx. Dialudid prn for pain, zofran for nausea (2) Multilevel degenerative disc disease: Code(s): M53.9 - Dorsopathy, unspecified Status: Acute Assessment and Plan: L1 compression deformity seen on CT. Check vitamin D level. Consider checking AM testosterone level as OP (3) Essential (primary) hypertension: Code(s): I10 - Essential (primary) hypertension Status: Acute Assessment and Plan: hold HCTZ (4) Cardiac murmur: Code(s): R01.1 - Cardiac murmur, unspecified Status: Acute Assessment and Plan: Obtain echocardiogram. Patient has a history of a cardiac murmur. Revised cardiac risk evaluation: Patient does not have a history of cardiac disease, CVA or heart failure. Renal functions WNL. Current cardiac risk evaluation 0 points, class 1 risk. Given 3.9% 30 day risk of , [place] cardiac arrest. echocardiogram revealed an LVEF is 65-70% with grade 1 diastolic dysfunction DS: Summary Hospital Course Reason for hospitalization: 6 mm UPJ obstructing stone Hospital Course: Patient is an 81-year-old male with past medical history of hypertension, LBB, and old [place], peripheral neuropathy and BPH. Patient presented to the emergency department on 12/22/2021 due to right groin pain that started the day before. Patient reported the pain was sharp in nature and had had endorsed nausea and vomiting with the pain. Patient had multiple episodes of emesis. Patient denies any fever, chills, chest pain, palpitations, diarrhea, constipation, dysuria or hematuria or blood in his stool. Patient was worried he may have had a another heart attack and was coming in for testing. While in the emergency department labs and imaging were performed. A CT of the abdomen and pelvis revealed a 6 mm UPJ stone on the right and compression fracture of the L1 chronic in nature. Urology was consulted and plan to take to the OR on 12/22/2021. Patient was started on anti emetics, IV pain medication. An echocardiogram was performed due to a cardiac murmur auscultated upon exam. Echocardiogram revealed aortic stenosis with an LVEF of 60% and a grade 1 diastolic dysfunction. Urology was able to perform surgery on 12/22/2021 and was able to retrieve the stone without significant difficulty-C operative note. On the day of discharge the patient reported mild dysuria with frequency which was discussed by the urologist with the patient. Patient did not have any acute concerns at the time of discharge. He will follow-up with urology within 1 week for the stent removal in the office. Status at Discharge Cognitive/behavioral status at discharge: Alert and oriented x4 Functional status at discharge: independent ambulation Overall status at discharge: patient is back to baseline Time Spent with Patient Time attestation: Total time spent providing and/or coordinating discharge services: Time spent: Greater than 30 minutes Exam Narrative: General: No acute distress. Mental Status: Awake, alert and oriented to person, place, and time with clear speech. Skin: Skin in warm, dry and intact without rashes or lesions. Head: Normocephalic and atraumatic. Eyes: Conjunctivae are clear without exudates or hemorrhage. Sclera is non-icteric. EOM are intact, PERRLA. Ears: The external ear and canal are non-tender and without swelling or discharge. Nose: Nasal mucosa is pink and moist. Septum midline. Nares patent bilaterally. Throat: Oral mucosa pink and moist with good dentition. Tongue midline. Neck: The neck supple without adenopathy. Trachea midline. No JVD. Cardiac
--- NOTE | 2021-12-23 15:27 | PCCCNOTE ---
On 12/23/21, the student, [Yaneli Capellan], provided care and completed [facility] documentation on this patient. I have reviewed the student's documentation and agree with the findings.
== END 2021-12-23 11:16 | disposition home or self-care (01) | DRG 660 ==
LOC: ANHED 22:35 → ANH3MEDSUR 23:31
PROVIDERS: Emergency Medicine; Urology; Admitting Provider Internal Medicine; Emergency Provider Emergency Medicine; PCP Family Medicine; Visit Provider Nurse Practitioner Family
PROC: 0T768DZ Dilation of Right Ureter with Intraluminal Device, Via Natural or Artificial Opening Endoscopic (ICD-10-PCS; CPT 52352; principal; 2021-12-22 16:00)
DX: N20.1 Calculus of ureter (principal); M48.56XA Collapsed vertebra, not elsewhere classified, lumbar region, initial encounter for fracture; Z20.822 Contact with and (suspected) exposure to COVID-19; I10 Essential (primary) hypertension; R01.1 Cardiac murmur, unspecified; I25.10 Atherosclerotic heart disease of native coronary artery without angina pectoris; I25.2 Old myocardial infarction; G62.9 Polyneuropathy, unspecified; I44.7 Left bundle-branch block, unspecified; N13.9 Obstructive and reflux uropathy, unspecified; N40.1 Benign prostatic hyperplasia with lower urinary tract symptoms; Z80.9 Family history of malignant neoplasm, unspecified; Z82.49 Family history of ischemic heart disease and other diseases of the circulatory system; Z87.891 Personal history of nicotine dependence; Z79.899 Other long term (current) drug therapy
CPT/HCPCS: 36415; 74018; 74177; 74420; 80053; 81001; 82306; 82365; 83036; 83690; 85025; 88300; 93005; 96361; 96365; 96375; 96376; 99285; A9270; C1769; C2617; C8929; C9803; G0378; J0131; J0690; J1170; J2270; J2405; J2704; J3010; J7120; Q9957; Q9966; Q9967; U0003; U0005

== ENCOUNTER 2022-03-28 09:35 | Observation (INO) | payer MEDICARE, OTHER, SELFPAY ==
[2022-03-28] VITALS (27 sets, daily range): BP systolic 114–153; BP diastolic 56–84; PULSE 62–80; RESP 14–26; TEMP 36.2–37.1; O2SAT 94–100; BMI 29.7
--- NOTE | ~2022-03-28 | CT_ITS ---
EXAMINATION: CT lumbar spine wo con DATE: 03/28/2022 10:09 INDICATION: Left leg weakness. TECHNIQUE: Computed tomography (CT) of the lumbar spine was performed without intravenous contrast. A utomated exposure control and iterative reconstruction technique were employed. The dose-length produ ct was 1299.46 mGy-cm. COMPARISON: CT abdomen and pelvis 12/21/2021 FINDINGS: Left ilium demonstrates cortical and trabecular thickening, consistent with Paget disease. Bone alignment is normal. There are Schmorl's nodes at most levels. L1 demonstrates chronic 2/5 heigh t loss centrally. There is mildly decreased disc height at L1-L2 and moderately decreased disc height at L2-L3. There is mildly decreased disc height at L4-L5 with interbody fusion. There is severely de creased disc height at L5-S1. There are endplate osteophytes at all levels with bridging at multiple levels in thoracic spine, consistent with diffuse idiopathic skeletal hyperostosis (DISH). The follow ing disc levels are specifically discussed: L1-L2: The disc is bulging. There is moderate bilateral facet joint osteoarthritis. There is mild mckenna ateral neural foraminal stenosis. There is mild central canal stenosis. L2-L3: The disc is bulging. There is moderate bilateral facet joint osteoarthritis. There is moderate bilateral neural foraminal stenosis. There is mild central canal stenosis. L3-L4: The disc is bulging. There is severe bilateral facet joint osteoarthritis. There is moderate b ilateral neural foraminal stenosis. There is mild central canal stenosis with posterior decompression . L4-L5: The disc is bulging. There is moderate bilateral facet joint osteoarthritis. There is moderate bilateral neural foraminal stenosis. There is mild central canal stenosis. L5-S1: The disc is bulging. There is severe bilateral facet joint osteoarthritis. There is moderate b ilateral neural foraminal stenosis. There is mild central canal stenosis. IMPRESSION: 1. Severe lumbar spondylosis. 2. Thoracic DISH. Reviewed, dictated and finalized at location A.
--- NOTE | ~2022-03-28 | MR_ITS ---
EXAMINATION: MR lumbar spine wo/w con DATE: 03/28/2022 17:27 INDICATION: Low back pain radiating to the left thigh. Weakness. TECHNIQUE: Magnetic resonance imaging (MRI) of the lumbar spine was performed without and with 18 mL MultiHance intravenous contrast. COMPARISON: Lumbar spine MRI 05/03/2021 FINDINGS: There is 6 degrees dextrocurvature of lumbar spine. There is 3 mm anterolisthesis of L3 on L4. There are Schmorl's nodes at most levels. There is chronic 2/4 height loss of L1 vertebral body c entrally. There is mildly decreased disc height at L2-L3 and L3-L4. There is interbody fusion at L4-L 5. There is moderately decreased disc height at L5-S1. There are changes of laminectomy at L3-L4 with 3.4 x 1.4 x 1.2 cm fluid collection in the postlaminectomy space, likely a seroma. The distal spinal cord signal intensity is normal. The conus medullaris is at L1. The following disc levels are specif ically discussed: L1-L2: The disc is bulging. There is severe bilateral facet joint osteoarthritis. There is mild bilat eral neural foraminal stenosis. There is mild central canal stenosis. L2-L3: The disc is bulging. There is severe bilateral facet joint osteoarthritis. There is moderate b ilateral neural foraminal stenosis. There is mild central canal stenosis. L3-L4: The disc is bulging and has an annular fissure. There is severe bilateral facet joint osteoart hritis. There is moderate bilateral neural foraminal stenosis. There is mild central canal stenosis w ith posterior decompression. L4-L5: There is severe bilateral facet joint osteoarthritis. There is moderate bilateral neural cami inal stenosis. There is mild central canal stenosis. L5-S1: The disc is bulging and has an annular fissure. There is severe bilateral facet joint osteoart hritis. There is moderate bilateral neural foraminal stenosis. There is mild central canal stenosis. IMPRESSION: 1. Interval laminectomy at L3-L4 with improvement in central canal stenosis. 2. Otherwise stable moderate lumbar spondylosis. Reviewed, dictated and finalized at location A.
--- NOTE | ~2022-03-28 | XR_ITS ---
XR hip LT min 2V 03/28/2022 10:13 INDICATION: Left hip pain PROCEDURE: 2 views left hip COMPARISON: No prior studies for comparison. FINDINGS: Fracture, dislocation or subluxation is not identified. There is osteoarthritis of the left hip. Osteopenia. There is heterotopic ossification adjacent to the greater trochanter. The soft tiss ues appear within normal limits. No foreign bodies are identified. There is mild trabecular thickeni ng of the left hemipelvis, suspicious for Paget's disease. IMPRESSION: 1: NO ACUTE BONE OR JOINT ABNORMALITY IDENTIFIED. 2: Mild osteoarthritis. 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 Reviewed, dictated and finalized at location A.
--- NOTE | 2022-03-28 09:41 | ECG_ITS ---
Measurements Intervals [place] Rate: 68 P: 40 CO: 187 QRS: -40 QRSD: 137 T: 66 QT: 401 QTc: 429 Interpretive Statements SINUS RHYTHM MARKED LEFT AXIS DEVIATION [QRS AXIS < -30] LEFT BUNDLE BRANCH BLOCK [120+ ms QRS DURATION, 80+ ms Q/S IN V1/V2, 85+ ms R IN I/aVL/V5/V6] COMPARED TO ECG 12/22/2021 09:10:19 NO DIFFERENCE Electronically Signed On 03-28-2022 14:32:19 CDT by Raymon Gomez M.D.
--- NOTE | 2022-03-28 09:54 | ED.WEAKNESS ---
HPI - Weakness General Chief complaint: Weakness Stated complaint: difficulty walking Time Seen by Provider: 03/28/22 09:37 History of Present Illness HPI Narrative: Patient is an 81-year-old male with a history of L3/l4 central canal stenosis status post laminectomy ([facility] [place]), hypertension, peripheral neuropathy, here for evaluation of left leg weakness today. Patient states that he woke up with weakness, states that it was severe enough that he was unable to get out of bed. Patient notes that the weakness is most severe when he attempts hip and knee flexion, notes that he has full range of motion in his foot. Denies any numbness or tingling in his leg. He does have some pain that originates in his left hip and radiates around into his knee on the left, but denies any back pain, incontinence or retention of bowel or bladder, saddle anesthesia. Related Data Home Medications Medication Instructions Recorded Confirmed tadalafil 20 mg tablet (Cialis) 20 mg PO DAILY PRN 12/29/21 03/07/22 Allergies Allergy/AdvReac Type Severity Reaction Status Date / Time No Known Allergies Allergy Verified 03/28/22 09:38 Review of Systems Review of Systems: Gen.: Denies fevers or chills Eyes: Denies eye pain or visual change ENT: Denies congestion Respiratory: Denies shortness of breath or cough CV: Denies chest pain or palpitations GI: Denies abdominal pain nausea, emesis or diarrhea denies burning, urgency, frequency or hematuria Musculoskeletal: Reports left leg pain and weakness. Neuro: Denies numbness, tingling, weakness or focal weakness Skin: Denies rash Except as documented, all other systems reviewed and negative [facility] Past Medical History Medical History (Updated 03/28/22 @ 14:45 by Macie Angel NP) Age-related nuclear cataract of both eyes Amputation finger Left hand dip of pointer finger due to a saw accident CAD (coronary artery disease) Chronic lower back pain Essential (primary) hypertension IFG (impaired fasting glucose) LBBB (left bundle branch block) Multilevel degenerative disc disease Obesity [place] (myocardial infarction) Peripheral polyneuropathy Primary open angle glaucoma (POAG) of both eyes, mild stage Surgical History Surgical History (Updated 03/28/22 @ 14:45 by Macie Angel NP) H/O cataract extraction H/O knee surgery H/O shoulder surgery History of lumbar surgery L3-4 decompression, laminectomy History of renal stent Hx of cholecystectomy Family History Family History Other Family history of arthritis Family history of chronic obstructive pulmonary disease Family history of malignant neoplasm Hypertension Social History Social History (Updated 03/28/22 @ 14:47 by Macie Angel NP) Social History: 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 He is with 2 children and a dog. He is a former smoker. He denies any alcohol marijuana or illicit drugs. His would be the durable power business attorney for healthcare. Code status full code Smoking packs per day: 1 Smoking cigarettes per day: 20.0 Years smoked: 10 Smoking pack-years: 10.00 Smoking status: Former smoker Tobacco type: cigarettes Second hand tobacco smoke exposure: No Smoking end date: 08/21/79 Alcohol intake: never Substance use: never Substance use type: does not use Living arrangements: with family Gender identity (if verbalized by the patient): Male Sexual Orientation (if Verbalized by the Patient): Straight or Heterosexual Spiritual care concerns: No Exam Narrative: APPEARANCE: Well appearing, no pain in distress, well-nourished. Head: Normocephalic and atraumatic. EYES: PERRLA/EOMI, conjunctivae clear NOSE: No nasal drainage EARS: External ear normal in appearance THROAT: Oropharynx is clear. Mucous membranes are moist. NECK: Supple. No adenopathy, no masses. RESPIRATORY: Airw
[2022-03-28 10:41] LABS: Alanine Aminotransferase 34 U/L (6-50); Albumin Level 4.3 g/dL (3.5-5.1); Alkaline Phosphatase 130 U/L (38-126); Anion Gap 10 mmol/L (8-16); Aspartate Amino Transferase 46 U/L (17-59); Bilirubin,Total 1.2 mg/dL (0.2-1.3); Blood Urea Nitrogen 14 mg/dL (9-20); Carbon Dioxide 26 mmol/L (22-30); Chloride 96 mmol/L (98-107); Estimated CRCL calculation 68 ml/min; Estimated Glomerular Filt Rate > 60; Glucose 127 mg/dL (65-110); Magnesium 1.8 mg/dL (1.6-2.3); Phosphorus 2.9 mg/dL (2.5-4.5); Potassium 3.2 mmol/L (3.4-5.0); Sodium 132 mmol/L (137-145)
[2022-03-28 10:45] LABS: Basophils Percent Auto 0.5 % (0.2-1.2); Hematocrit 43.4 % (42.0-52.0); Hemoglobin 14.6 g/dL (14.0-18.0); Immature Granulocyte Absolute 0.02 K/mm3 (0.00-0.031); Immature Granulocyte Percent A 0.5 % (0-0.5); Immature Platelet Fraction Pct 2.1 % (0.9-11.2); Lymphocytes Absolute Auto 0.65 K/mm3 (0.9-3.2); Lymphocytes Percent Auto 15.1 % (18.3-44.2); Mean Corpuscular HGB Conc 33.6 g/dl (32-36); Mean Corpuscular Hemoglobin 31.6 pg (26-34); Mean Corpuscular Volume 93.9 fl (80-100); Mean Platelet Volume 9.7 fl (7.4-10.4); Monocytes Absolute Auto 0.5 K/mm3 (0.1-0.6); Monocytes Percent Auto 11.2 % (2.6-8.5); Neutrophils Absolute Auto 3.1 K/mm3 (1.3-6.7); Neutrophils Percent Auto 72.7 % (45.5-73.1); Platelet Count Result 146 k/mm3 (150-375); Red Blood Count 4.62 M/mm3 (4.6-6.20); Red Cell Distribution Width 13.1 % (11.5-14.5); White Blood Count 4.3 K/mm3 (4.5-10.0)
[2022-03-28] MEDS: POTASSIUM CHLORIDE 20 MEQ TABLET PO (12:20)
[2022-03-28 12:28] LABS: Creatine Kinase 260 U/L (55-170)
--- NOTE | 2022-03-28 14:01 | PM.IMHP ---
H&P: HPI History of Present Illness Date/Time: 03/28/22 14:01 Chief Complaint: Lower back pain Narrative: This is an 81-year-old male patient with a history of lower back pain. The patient had a L3-L4 central canal stenosis status post laminectomy on July of 2021 at [facility]. Today the is complaining of left hip and left thigh pain which he noted is more severe now and he is unable to get out of bed.(see office visit from 03/07/[address] Blair's office the patient had been complaining of left hip pain that radiated to the left thigh.) The patient has been taking ibuprofen t.i.d. for this pain however he stated that is no longer working for him. The patient had also been on a Medrol dose pack for 21 days that was prescribed on 03/07/2022. X-ray of the left hip shows no acute bone or joint abnormality identified. Mild osteoarthritis. 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 Lumbar spine CT from today shows severe lumbar spondylosis. Thoracic dish. Patient stated that his pain was a 6 or 7 and that he was requiring something for pain. [place] was ordered for him in the emergency room as well as Toradol. His neuro surgeon that performed back surgery was notified today and agrees to consult on the patient while he is here. The patient is being admitted to observation status on the date of service of 03/28/2022. Review of Systems Review of Systems: See HPI All systems reviewed & are unremarkable except as noted in HPI and below Constitutional: Constitutional: Reports as per HPI and Reports no additional constitutional complaints Eyes: Eyes: Reports as per HPI and Reports no additional eye complaints ENT: Reports system reviewed and no additional complaints, except as documented and Reports Normal hearing present Cardiovascular: Cardiovascular: Reports no additional cardiovascular complaints Respiratory: Respiratory: Reports no additional respiratory complaints and Reports no additional respiratory complaints Gastrointestinal: Gastrointestinal: Reports as per HPI and Reports no additional gastrointestinal complaints Musculoskeletal: Musculoskeletal: Reports no additional musculoskeletal complaints Integumentary/Breasts: Skin/Breast: Reports system reviewed and no additional complaints, except as docu and Reports as per HPI Neurologic: Reports system reviewed and no additional complaints, except as documented, Reports as per HPI and Reports Normal hearing present Psychiatric: Psychiatric: Reports no additional psychiatric complaints and Reports as per HPI Endocrine: Endocrine: Reports no additional endocrine complaints Hematologic/Lymphatic: Hematologic/Lymphatic: Reports no additional hematologic/lymphatic complaints Allergic/Immunologic: Allergic/Immunologic: Reports no additional allergic/immunologic complaints [facility] Past Medical History Medical History (Updated 03/28/22 @ 14:45 by Macie Angel NP) Age-related nuclear cataract of both eyes Amputation finger Left hand dip of pointer finger due to a saw accident CAD (coronary artery disease) Chronic lower back pain Essential (primary) hypertension IFG (impaired fasting glucose) LBBB (left bundle branch block) Multilevel degenerative disc disease Obesity [place] (myocardial infarction) Peripheral polyneuropathy Primary open angle glaucoma (POAG) of both eyes, mild stage Surgical History Surgical History (Updated 03/28/22 @ 14:45 by Macie Angel NP) H/O cataract extraction H/O knee surgery H/O shoulder surgery History of lumbar surgery L3-4 decompression, laminectomy History of renal stent Hx of cholecystectomy Family History Family History Other Family history of arthritis Family history of chronic obstructive pulmonary disease Family history of malignant neoplasm Hypertension Social History Social History (Updated 03/28/22 @ 14:47 by Macie Lawrence
[2022-03-28] MEDS: HYDROcodone/acetaminophen (*CRX) 10-325 MG TABLET 1 TAB PO (14:10)
[2022-03-28] MEDS: KETOROLAC 15 MG/ML VIAL (*BKC) IV PUSH (14:26)
[2022-03-29 06:00] VITALS: BP 131/63; PULSE 66; RESP 16; TEMP 37; O2SAT 95
[2022-03-29 06:32] LABS: Alanine Aminotransferase 38 U/L (6-50); Albumin Level 4.2 g/dL (3.5-5.1); Alkaline Phosphatase 115 U/L (38-126); Anion Gap 9 mmol/L (8-16); Aspartate Amino Transferase 73 U/L (17-59); Bilirubin,Total 1.2 mg/dL (0.2-1.3); Blood Urea Nitrogen 14 mg/dL (9-20); CRP 6.5 mg/dL (<1.0); Calcium 8.4 mg/dL (8.4-10.2); Carbon Dioxide 31 mmol/L (22-30); Chloride 94 mmol/L (98-107); Estimated CRCL calculation 68 ml/min; Estimated Glomerular Filt Rate > 60; Glucose 148 mg/dL (65-110); Magnesium 1.7 mg/dL (1.6-2.3); Potassium 3.4 mmol/L (3.4-5.0); Sodium 134 mmol/L (137-145)
[2022-03-29 06:35] LABS: Basophils Percent Auto 0.4 % (0.2-1.2); Hematocrit 42.4 % (42.0-52.0); Hemoglobin 14.1 g/dL (14.0-18.0); Immature Granulocyte Absolute 0.01 K/mm3 (0.00-0.031); Immature Granulocyte Percent A 0.2 % (0-0.5); Immature Platelet Fraction Pct 3.2 % (0.9-11.2); Lymphocytes Absolute Auto 0.69 K/mm3 (0.9-3.2); Lymphocytes Percent Auto 14.2 % (18.3-44.2); Mean Corpuscular HGB Conc 33.3 g/dl (32-36); Mean Corpuscular Hemoglobin 31.5 pg (26-34); Mean Corpuscular Volume 94.6 fl (80-100); Mean Platelet Volume 9.7 fl (7.4-10.4); Monocytes Absolute Auto 0.5 K/mm3 (0.1-0.6); Monocytes Percent Auto 11.1 % (2.6-8.5); Neutrophils Absolute Auto 3.6 K/mm3 (1.3-6.7); Neutrophils Percent Auto 74.1 % (45.5-73.1); Platelet Count Result 144 k/mm3 (150-375); Red Blood Count 4.48 M/mm3 (4.6-6.20); Red Cell Distribution Width 13.2 % (11.5-14.5); White Blood Count 4.9 K/mm3 (4.5-10.0)
[2022-03-29 08:00] VITALS: O2SAT 96
[2022-03-29] MEDS: CHOLECALCIFEROL 1,000 UNITS TABLET 1000 UNITS PO (08:50)
[2022-03-29] MEDS: hydroCHLOROthiazide 12.5 MG CAPSULE PO (08:50)
[2022-03-29 09:03] VITALS: O2SAT 92
[2022-03-29] MEDS: POTASSIUM CHLORIDE 20 MEQ PACKET (FOR LIQUID) PO (12:59)
--- NOTE | 2022-03-29 13:56 | PM.IMPN ---
Progress Note: A&P Assessment and Plan (1) Left leg weakness: Code(s): R29.898 - Other symptoms and signs involving the musculoskeletal system Status: Acute Assessment and Plan: Patient presented with left hip pain radiating down left leg with associated weakness; previously treated with medrol dose-marian and NSAIDs. Neurosurgery consulted, Dr. Rubin, and appreciate recommendations. Pain control with PO/IV medications. PT and OT evaluation Consult respiratory care program director for possible rehab (2) Essential (primary) hypertension: Code(s): I10 - Essential (primary) hypertension Status: Acute Assessment and Plan: continue home dose hydrochlorothiazide BP stable. (3) Erectile dysfunction: Code(s): N52.9 - Male erectile dysfunction, unspecified Status: Acute Assessment and Plan: Hold tadalafil while in the hospital Plan CODE STATUS: FULL CODE Disposition: possible rehab versus home with home health. Time Spent With Patient Time with patient: 15 - 25 minutes Subjective Date/time seen: 03/29/22 13:56 Interval history: Patient found lying in bed. He reports persistent pain to his left hip and down his left leg. The pain is constant, shooting and nothing worsens. His son is at bedside and reports the patient has had symptoms for a few months. The patient's son also endorses the patient c/o neuropathy and weakness to left side. The patient started to use a cane several months ago. Review of Systems Review of Systems: All systems reviewed & are unremarkable except as noted in HPI and below Exam Narrative: General: No acute distress.? Well-developed and well-groomed?older adult male. No oxygen. Mental Status/Psych: Awake, alert and oriented to person and place with clear speech. Neutral mood and affect. Pleasant and cooperative. Skin: Skin fair, warm, dry and intact without rashes or lesions. Healed lumbar incision. Fair turgor.? HEENT: Normocephalic. Sclera is non-icteric. EOM intact. PERRL. Grossly normal hearing. Oral mucosa pink and moist. Oropharynx within normal limits. Neck: Supple. No JVD. Heart: S1 and S2 regular rate and rhythm. No murmurs, gallops, or rubs auscultated. Chest: Respirations even and unlabored. Lung sounds are clear to auscultation in all lobes bilaterally without wheezes, rhonchi, or rales. Abdomen: Soft, obese and non-tender to palpation.? Bowel sounds present in all 4 quadrants. No guarding or grimacing. Extremities:? Left hip flexion reduced 2/2 pain. Grossly normal ROM all other extremities. No edema. Radial and dorsalis pedis pulses +2 bilaterally. Neurological: No focal deficits. Cranial nerves 2-12 grossly intact. BLE strength 5/5. ? Objective Data Vital Signs Vital Signs: Vital Signs - 24 hr 03/28/22 14:07 03/28/22 14:22 03/28/22 15:06 Temperature 97.2 F L Pulse Rate 67 69 68 Respiratory Rate 19 18 18 Blood Pressure 153/84 H Pulse Oximetry 97 97 100 Oxygen Delivery 03/28/22 15:44 03/28/22 20:00 03/28/22 21:38 Temperature 98.4 F Pulse Rate 71 Respiratory Rate 16 Blood Pressure 134/56 L Pulse Oximetry 94 Oxygen Delivery Room Air Room Air 03/29/22 06:00 03/29/22 08:38 03/29/22 09:03 Temperature 98.6 F Pulse Rate 66 Respiratory Rate 16 Blood Pressure 131/63 Pulse Oximetry 95 92 Oxygen Delivery Room Air Room Air 03/29/22 09:20 03/29/22 08:00 Temperature Pulse Rate Respiratory Rate Blood Pressure Pulse Oximetry 96 Oxygen Delivery Room Air Room Air Intake/Output Intake/Output: Intake & Output 03/26/22 03/27/22 03/28/22 03/29/22 23:59 23:59 23:59 23:59 Intake Total 790 500 Balance 790 500 Meds/Results Medications: Active Medications Generic Name Dose Route Start Last Admin Trade Name Freq PRN Reason Stop Dose Admin Hydrocodone Bitart/Acetaminophen 1 tab 03/28/22 19:42 Hydrocodone/Acetaminophen (*Crx) 5-325 Mg Tablet PO
[2022-03-29 14:00] VITALS: BP 142/69; PULSE 71; RESP 18; TEMP 36.9; O2SAT 99
[2022-03-29] MEDS: HYDROcodone/acetaminophen (*CRX) 5-325 MG TABLET 1 TAB PO (17:39)
[2022-03-29] MEDS: IBUPROFEN 400 MG TABLET 800 MG PO (20:26)
[2022-03-29 21:33] VITALS: O2SAT 98
[2022-03-29 22:00] VITALS: BP 134/77; PULSE 63; RESP 16; TEMP 36.3; O2SAT 97
[2022-03-30 05:55] VITALS: BP 138/88; PULSE 63; RESP 17; TEMP 36.6; O2SAT 98
[2022-03-30] MEDS: hydroCHLOROthiazide 12.5 MG CAPSULE PO (08:28)
[2022-03-30] MEDS: IBUPROFEN 400 MG TABLET 800 MG PO ×3 (08:28→20:36)
[2022-03-30] MEDS: CHOLECALCIFEROL 1,000 UNITS TABLET 1000 UNITS PO (08:28)
[2022-03-30] MEDS: POTASSIUM CHLORIDE 20 MEQ PACKET (FOR LIQUID) PO (08:29)
[2022-03-30] MEDS: LIDOCAINE 5% PATCH 1 PATCH TRANSDERM (08:29)
[2022-03-30 14:00] VITALS: BP 143/78; PULSE 76; RESP 18; TEMP 36.3; O2SAT 98
--- NOTE | 2022-03-30 15:58 | PM.IMPN ---
Progress Note: A&P Assessment and Plan (1) Left leg weakness: Code(s): R29.898 - Other symptoms and signs involving the musculoskeletal system Status: Acute Assessment and Plan: Patient presented with left hip pain radiating down left leg with associated weakness; previously treated with medrol dose-marian and NSAIDs. Neurosurgery consulted, Dr. Rubin, and appreciate recommendations. Awaiting recommendations for further management and/or intervention. Imaging suggestive of bulging discs without spinal cord compression. No c/o saddle or LLE paresthesia. No incontinence. Pain control with PO medications. Lidoderm 5% left lower back/buttock. Pain appears improved. PT and OT consulted and appears patient would be appropriate for home health now. Consult rn care manager following. (2) Essential (primary) hypertension: Code(s): I10 - Essential (primary) hypertension Status: Acute Assessment and Plan: continue home dose hydrochlorothiazide BP stable. (3) Erectile dysfunction: Code(s): N52.9 - Male erectile dysfunction, unspecified Status: Acute Assessment and Plan: Hold tadalafil while in the hospital Plan CODE STATUS: FULL CODE Disposition: Likely home with home health pending Neurosurgery recommendations. Time Spent With Patient Time with patient: 15 - 25 minutes (>50% time spent on patient/family education) Subjective Date/time seen: 03/30/22 15:58 Interval history: Patient is an 81 yo male with history of prior lumbar laminectomy who presented to the ED for evaluation of left hip pain radiating down his left hip with associated weakness. The patient reports his pain is improved. He was able to ambulate down the davis with walker and assistance per patient and nursing staff. He denies paresthesia or difficulty bearing weight. He does not want to go to rehab, but will go to therapy daily. He does not want to stay. Family is concerned that the patient was somewhat confused yesterday, however, his son reports the patient is back to his baseline this morning. He has had no prior episodes of confusion at home. Review of Systems Review of Systems: All systems reviewed & are unremarkable except as noted in HPI and below Exam Narrative: General: No acute distress.? Sitting up in the chair. Mental Status/Psych: Awake, AOx4. clear speech. Neutral mood and affect. Pleasant and cooperative. Skin: Skin fair, warm, dry and intact without rashes or lesions. Healed lumbar incision. Fair turgor.? HEENT: Normocephalic. Sclera is non-icteric. Pupils equal and round. Oral mucosa pink and moist. Neck: No JVD. Heart: S1 and S2 regular rate and rhythm. No murmurs, gallops, or rubs auscultated. Chest: Respirations even and unlabored. Lung sounds are clear to auscultation in all lobes bilaterally without wheezes, rhonchi, or rales. Abdomen: Soft, obese and non-tender to palpation.? Bowel sounds present in all 4 quadrants. No guarding or grimacing. Extremities:? Grossly normal ROM all extremities. No edema. Radial and dorsalis pedis pulses +2 bilaterally. Neurological: Light touch sensation intact BLE. BLE strength 5/5. ? Objective Data Vital Signs Vital Signs: Vital Signs - 24 hr 03/29/22 20:00 03/29/22 22:00 03/29/22 21:33 Temperature 97.3 F L Pulse Rate 63 Respiratory Rate 16 Blood Pressure 134/77 Pulse Oximetry 97 98 Oxygen Delivery Room Air Room Air 03/30/22 05:55 03/30/22 14:00 Temperature 97.9 F 97.3 F L Pulse Rate 63 76 Respiratory Rate 17 98 H Blood Pressure 138/88 143/78 H Pulse Oximetry 98 98 Oxygen Delivery Intake/Output Intake/Output: Intake & Output 03/27/22 03/28/22 03/29/22 03/30/22 23:59 23:59 23:59 23:59 Intake Total 790 920 600 Output Total 100 Balance 790 820 600 Meds/Results Medications: Active Medications Generic Name Dose Route Start Last Admin Trade Name Freq PRN Reason Stop Dose
[2022-03-30] MEDS: LATANOPROST 0.005% OP SOLN 2.5 ML BTL 1 DROP EACH EYE (20:40)
[2022-03-30 22:00] VITALS: BP 135/82; PULSE 73; RESP 18; TEMP 36.6; O2SAT 96
[2022-03-30] MEDS: HYDROcodone/acetaminophen (*CRX) 5-325 MG TABLET 1 TAB PO (22:06)
[2022-03-31 06:00] VITALS: BP 134/77; PULSE 71; RESP 14; TEMP 36.4; O2SAT 96
[2022-03-31] MEDS: hydroCHLOROthiazide 12.5 MG CAPSULE PO (08:13)
[2022-03-31] MEDS: POTASSIUM CHLORIDE 20 MEQ PACKET (FOR LIQUID) PO (08:13)
[2022-03-31] MEDS: IBUPROFEN 400 MG TABLET 800 MG PO (08:13)
[2022-03-31] MEDS: CHOLECALCIFEROL 1,000 UNITS TABLET 1000 UNITS PO (08:13)
[2022-03-31] MEDS: LIDOCAINE 5% PATCH 1 PATCH TRANSDERM (08:13)
--- NOTE | 2022-03-31 10:54 | PC.NURSE ---
Tere with Neurosurgery office called to note that Dr. Knox's noted that patient needs to follow up in the clinic outpatient.
--- NOTE | 2022-03-31 11:17 | PM.DS ---
DS: Admitting Diagnosis Discharge Date 03/31/22 1126 Admitting Diagnosis Left hip pain Left leg weakness DS: Discharge Diagnosis Discharge Diagnosis (1) Left leg weakness: Code(s): R29.898 - Other symptoms and signs involving the musculoskeletal system Status: Acute Assessment and Plan: Patient presented with left hip pain radiating down left leg with associated weakness; previously treated with medrol dose-marian and NSAIDs. Neurosurgery consulted, Dr. Rubin, and appreciate recommendations. Awaiting recommendations for further management and/or intervention. Imaging suggestive of bulging discs without spinal cord compression. No c/o saddle or LLE paresthesia. No incontinence. Pain control with PO medications. Lidoderm 5% left lower back/buttock. Pain appears improved. PT and OT consulted and appears patient would be appropriate for home health now.? Consult hourly caregiver arranging home health. Lumbar MRI with moderate stable lumbar spondylosis. (2) Left leg pain: Code(s): M79.605 - Pain in left leg Status: Acute Assessment and Plan: As above. (3) Essential (primary) hypertension: Code(s): I10 - Essential (primary) hypertension Status: Chronic Assessment and Plan: continue home dose hydrochlorothiazide BP stable. DS: Summary Hospital Course Reason for hospitalization: Left hip pain radiating to left lower leg Hospital Course: Rian Lux is an 81-year-old male patient with a history of lower back pain.? The patient had a L3-L4 central canal stenosis status post laminectomy on July of 2021 at [facility].? He presented to the ED complaining of intractable left hip and left thigh pain which he noted is more severe than usual. He is unable to get out of bed. The patient has been taking ibuprofen t.i.d. for this pain however he stated that is no longer working for him.? The patient had also been on a Medrol dose pack for 21 days that was prescribed on 03/07/2022. X-ray of the left hip shows no acute bone or joint abnormality identified.? Mild osteoarthritis.? 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 Lumbar spine CT showed severe lumbar spondylosis.? Patient stated that his pain was a 6 or 7 and that he was requiring something for pain.? Culebra was ordered for him in the emergency room as well as Toradol.? His neuro surgeon that performed back surgery was notified in the ED and agreeable to consult on the patient while he is here.? The patient was being admitted to the medical floor for observation status and pain control. The patient was continued on PRN ibuprofen, acetaminophen and Culebra. PT/OT was consulted and initially patient was recommended to go to SNF rehab. The patient, however, was not interested in this, despite family encouragement. His pain improved and the patient had significantly improved endurance with improved pain control and home health was recommended, to which the patient was agreeable. Dr. Rubin, Neurosurgery was consulted and his office was contacted for recommendations on patient care. Dr. Rubin requested the patient follow up outpatient in 3 weeks. During the patient's hospital stay, his son reported concern that the patient was confused and not his normal cognitive status on 03/30/22. The patient had not been sleeping, not eating and in acute pain. He had also received norco and toradol in the ED. The patient's mental status was at baseline on the day of discharge. No s/s acute infection were noted. Confusion was thought to be secondary to narcotics and impaired sleep. Patient was discharged home with home health services. His pain was minimal at discharge and controlled on PRN ibuprofen and norco. Status at Discharge Cognitive/behavioral status at discharge: AAOx4. Functional status at discharge: uses cane/walker Overall status at discharge: patient is progressing back to baseline Time Spent with Patien
== END 2022-03-31 11:57 | disposition home health service (06) ==
LOC: ANHED 10:22 → ANH3MEDSUR 14:39
PROVIDERS: Nurse Practitioner; Physician Assistant; Admitting Provider Student in an Organized Health Care Education/Training Program; Emergency Provider Emergency Medicine; PCP Family Medicine; Visit Provider Nurse Practitioner Family
DX: M48.061 Spinal stenosis, lumbar region without neurogenic claudication (principal); M51.36 Other intervertebral disc degeneration, lumbar region; M47.816 Spondylosis without myelopathy or radiculopathy, lumbar region; M96.1 Postlaminectomy syndrome, not elsewhere classified; I10 Essential (primary) hypertension; I25.10 Atherosclerotic heart disease of native coronary artery without angina pectoris; G62.9 Polyneuropathy, unspecified; R73.01 Impaired fasting glucose; I44.7 Left bundle-branch block, unspecified; M16.12 Unilateral primary osteoarthritis, left hip; M48.14 Ankylosing hyperostosis [Forestier], thoracic region; E87.6 Hypokalemia; E66.9 Obesity, unspecified; Z68.29 Body mass index [BMI] 29.0-29.9, adult; I25.2 Old myocardial infarction; H40.1131 Primary open-angle glaucoma, bilateral, mild stage; N52.9 Male erectile dysfunction, unspecified; Z87.891 Personal history of nicotine dependence; Z79.1 Long term (current) use of non-steroidal anti-inflammatories (NSAID); Z79.52 Long term (current) use of systemic steroids; Z79.899 Other long term (current) drug therapy
CPT/HCPCS: 36415; 72131; 72158; 73502; 80053; 82550; 83735; 84100; 85025; 85055; 86140; 93005; 96374; 96375; 97110; 97161; 97165; 97530; 97535; 99285; A9270; A9577; G0378; J1885

== ENCOUNTER → 2023-07-20 10:52 | Outpatient (CLI) | payer MEDICARE, OTHER, SELFPAY ==
--- NOTE | ~2023-07-20 | XR_ITS ---
XR chest 2V 07/20/2023 11:10 Indication: Cough Procedure: 2 view chest Comparison: 09/17/2018 Findings: There is left thoracic volume loss. There are coarse interstitial changes of the left mid a nd lower thorax which have progressed since prior examination. There is possible left pleural-based m ass. Heart size normal. Right lung clear. Impression: 1: Possible pleural-based mass left mid thorax with adjacent interstitial changes. Recommend correlat ion with CT chest. Reviewed, dictated and finalized at location L. ICAL CHEMIST Impression: 1: Possible pleural-based mass left mid thorax with adjacent interstitial johnson es. Recommend correlation with CT chest.
== END ==
PROVIDERS: PCP Family Medicine; Visit Provider Physician Assistant Medical
DX: R05.9 Cough, unspecified (principal); R07.81 Pleurodynia; R09.89 Other specified symptoms and signs involving the circulatory and respiratory systems
CPT/HCPCS: 71046

== ENCOUNTER → 2023-07-31 11:01 | Outpatient (CLI) | payer MEDICARE, OTHER, SELFPAY ==
--- NOTE | ~2023-07-31 | CT_ITS ---
EXAMINATION: CT chest high resolution w con DATE: 07/31/2023 11:32 INDICATION: Other chest calcified pleural conditions, possible pleural-based left lung mass TECHNIQUE: Computed tomography (CT) of the chest was performed without intravenous contrast. The dose -length product (DLP) was 509.24 mGy-cm. Automated exposure control and iterative reconstruction tech [place] were employed. COMPARISON: None FINDINGS: There are calcified pleural plaques which can be seen in the setting of prior asbestos expo sure. There are small pleural effusions, left greater than right. There are minimal airspace opacitie s of the left lower lobe. There is a 1.5 x 1.1 cm pleural-based nodule of the left upper lobe. No pat hologically enlarged thoracic lymph nodes are identified. The heart size is normal. There is calcifie d coronary artery atherosclerosis. Changes of cholecystectomy are noted. There are bridging osteophyt es at multiple levels in the spine, consistent with diffuse idiopathic skeletal hyperostosis (DISH). IMPRESSION: 1. 1.3 cm pleural-based nodule of the left upper lobe. Recommend follow-up CT in three months, PET/CT , or tissue sampling. 2. Calcified pleural plaques which can be seen in the setting of prior asbestos exposure. Reviewed, dictated and finalized at location B. NSIC SCIENTIST IMPRESSION: 1. 1.3 cm pleural-based nodule of the left upper lobe. Recommend follow-up CT i n three months, PET/CT, or tissue sampling. 2. Calcified pleural plaques which can be seen in the setting of prior asbestos exposure.
[2023-07-31 11:21] LABS: Estimated Glomerular Filt Rate > 60
== END ==
PROVIDERS: PCP Family Medicine; Visit Provider Physician Assistant Medical
DX: R91.1 Solitary pulmonary nodule (principal); J92.0 Pleural plaque with presence of asbestos; J94.8 Other specified pleural conditions
CPT/HCPCS: 71260; Q9967

== ENCOUNTER 2023-08-10 13:11 | Outpatient (CLI) | payer MEDICARE, OTHER, SELFPAY ==
--- NOTE | ~2023-08-10 | PE_ITS ---
EXAMINATION: PET skull to mid thigh DATE: 08/10/2023 15:16 INDICATION: Lung mass TECHNIQUE: Blood glucose level was 115 mg/dL. 11.67 mCi of 18-fluorodeoxyglucose (18-FDG) was adminis tered i.v. Low dose computed tomography (CT) images were acquired from the base of the brain to the p roximal thighs for attenuation correction and anatomic localization. Positron emission tomography (PE T) images were acquired in the same distribution beginning minutes after injection. Images including fused PET/CT images were reconstructed in axial, coronal, and sagittal planes. Automated exposure con trol technique was employed. The dose-length product was 1242.18mGy-cm. COMPARISON: Chest CT dated 07/31/2023 FINDINGS: Head/neck: There is symmetric increased activity in the oral cavity, lingual tonsils and ocular muscles without CT correlate, likely physiologic. No pathologically enlarged cervical lymphadenopathy or suspicious f oci of increased FDG uptake in the visualized head or neck. Chest: There are bilateral calcified pleural plaques suggesting prior asbestos exposure. There is round atel ectasis associated volume loss and architectural distortion abutting the calcified pleural plaques at the posterior basilar segments of the bilateral lower lobes which is without evident FDG uptake. 1.5 x 1.0 cm left upper lobe nodule abutting the pleura which is also without evident FDG uptake. Chroni c small left pleural effusion. Heart size is normal. Atherosclerotic coronary artery calcification. N o pericardial effusion. Thoracic aorta is normal in caliber. No pathologically enlarged or FDG avid t horacic lymphadenopathy. Abdomen/pelvis/proximal thighs: Physiologic renal accumulation and excretion of FDG activity in the kidneys, bladder and along portio ns of ureters. Prostatomegaly. 6 mm nonobstructing stone at a lower pole calyx of the left kidney. Ch olecystectomy clips the gallbladder fossa. Normal degree and heterogenous pattern of increased uptake throughout the liver without radiologic correlate or dominant FDG avid lesion. The gallbladder, panc reas, spleen and bilateral adrenal glands are normal. Mild to moderate uptake scattered throughout th e bowels without radiologic correlate, also likely physiologic. There is prominent colonic diverticul osis with a sigmoid predominance. There is no adjacent inflammatory change to suggest diverticulitis . Normal appendix. No other abnormal foci of increased FDG uptake or pathologically enlarged lymphade nopathy in the abdomen, pelvis or proximal thighs. Musculoskeletal: There is increased PSMA activity associated with a few healing subacute right rib fractures. There ar e bridging osteophytes at multiple levels consistent with diffuse idiopathic skeletal hyperostosis (D WENDIE). Osteopenia with chronic L1 compression fracture. Anterior fusion at C4-C5. Pagetoid changes of the left hemipelvis. Chronic nonaggressive appearing lytic lesion with thin sclerotic margins at the left greater trochanter which is without interval change since CT dated 12/21/2021 which is without abn ormal FDG uptake. Mild increased uptake overlying the bilateral greater trochanters consistent with t rochanteric bursitis. There is mild uptake associated with at the site of a prior L4 laminectomy. IMPRESSION: 1. No FDG uptake associated with the previous noted 1.5 x 1.0 cm left upper lobe nodule. While reassu ring this does not absolutely exclude malignancy and would recommend 6 month follow-up chest CT. 2. Bilateral calcified pleural plaques with associated peripheral round atelectasis in the bilateral lower lobes likely sequela of chronic asbestos exposure. 3. Diverticulosis. 4. Prostatomegaly. 5. A few healing right-sided rib fractures. Reviewed, dictated and finalized at location A. LITY SECURITY OFFICER IMP
[2023-08-10 13:39] LABS: Glucose Point of Care 115 mg/dl (65-105)
== END 2023-08-10 13:12 | disposition home or self-care (01) ==
PROVIDERS: PCP Family Medicine; Visit Provider Physician Assistant
DX: R93.89 Abnormal findings on diagnostic imaging of other specified body structures (principal); R91.8 Other nonspecific abnormal finding of lung field; K57.90 Diverticulosis of intestine, part unspecified, without perforation or abscess without bleeding; N40.0 Benign prostatic hyperplasia without lower urinary tract symptoms; S22.41XD Multiple fractures of ribs, right side, subsequent encounter for fracture with routine healing; Z77.090 Contact with and (suspected) exposure to asbestos
CPT/HCPCS: 78815; A9552

== ENCOUNTER 2024-02-15 08:50 | Outpatient (CLI) | payer MEDICARE, SELFPAY ==
--- NOTE | ~2024-02-15 | CT_ITS ---
Clinical Indication: 1.5 cm left upper lobe pulmonary nodule CT Scan of the Chest with Contrast: Technique: Contiguous sections were acquired throughout the chest after intravenous administration of 75 cc of Omnipaque 350. Dose reduction technique was used on this scan by utilizing automated exposu re control and iterative reconstruction technique. The dose-length product (DLP) was 406.84 mGy-cm. COMPARISON: 07/31/2023 Findings: There is no evidence of any significant mediastinal, hilar or axillary lymphadenopathy. Mediastinal s oft tissues and vascular structures are unremarkable. There is no evidence of pleural or pericardial effusion. Stable calcified bibasilar pleural plaques a nd areas of bibasilar pleural thickening. Stable 1.5 x 1.0 cm peripheral left upper lobe pulmonary nodule (axial image 34). Images through the upper abdomen reveal no abnormalities. Stable degenerative changes and DISH in the thoracic spine. Impression: Stable 1.5 x 1.0 cm peripheral left upper lobe pulmonary nodule. Stable bibasilar pleural plaques and pleural thickening. Reviewed, dictated and finalized at location . Impression: Stable 1.5 x 1.0 cm peripheral left upper lobe pulmonary nodule. Stable bibasilar pleural plaques and pleural thickening.
[2024-02-15 09:14] LABS: Estimated Glomerular Filt Rate > 60
== END 2024-02-15 08:51 | disposition home or self-care (01) ==
PROVIDERS: PCP Family Medicine; Visit Provider Physician Assistant
DX: R91.1 Solitary pulmonary nodule (principal); J61 Pneumoconiosis due to asbestos and other mineral fibers
CPT/HCPCS: 71260; Q9967

== ENCOUNTER 2025-03-03 12:31 | Outpatient (CLI) | payer MEDICARE, SELFPAY ==
--- NOTE | ~2025-03-03 | XR_ITS ---
XR chest 2V Ordering provider: Gisell Tenorio PA-C History: 84 years Male with . monitoring pleural plaques . Comparison: July 20, 2023 FINDINGS: MEDIASTINUM: The cardiac silhouette is not enlarged. LUNGS: No infiltrates, effusions or pneumothorax. Fibrotic changes are seen in the mid left lung with pleural thickening. OTHER: No free air under the diaphragm. Degenerative changes of the spine with dextroscoliosis. IMPRESSION: Fibrotic changes in the left mid zone unchanged from previous examination. Reviewed, dictated and finalized at location A.
== END 2025-03-03 12:32 | disposition home or self-care (01) ==
LOC: MICIMG 12:34
PROVIDERS: PCP Family Medicine; Visit Provider Physician Assistant Medical
DX: J84.10 Pulmonary fibrosis, unspecified (principal); Z77.090 Contact with and (suspected) exposure to asbestos; J94.8 Other specified pleural conditions
CPT/HCPCS: 71046